=== PATIENT | male | born 1960 | race Caucasian/White ===

== ENCOUNTER 2017-07-23 19:30 | Inpatient (IN) ==
[2017-07-23] MEDS ORDERED: 0.9 % Sodium Chloride 1,000 ML IVC ONE ×3 (20:06→22:50)
[2017-07-23] MEDS ORDERED: Folic Acid 1 MG in D5% in Water 50 ML IVPB ONE (20:08)
[2017-07-23] MEDS ORDERED: Thiamine (B-1) 100 MG in D5% in Water 50 ML IVPB STA (20:08)
--- NOTE | 2017-07-23 20:17 | Emergency Department Note ---
Disposition Clinical Impression: Alcoholic intoxication, Lactic acidosis, Delirium, Suicidal ideations Disposition: Admitted As Inpatient Condition: Fair Time of Disposition: 22:14 Alcohol HPI - General Chief Complaint: ED Alcohol Abuse Stated Complaint: ETOH Time Seen by Provider: 07/23/17 19:43 Source: patient Mode of arrival: ambulatory Limitations: no limitations Nursing Notes Reviewed: Yes Vital Signs Reviewed: Yes - History of Present Illness HPI Narrative: 57-year-old male with multiple complaints, generalized weakness chronic alcoholic previously anticoagulated on Coumadin, states that he just feels unwell. Patient has been noncompliant on his medications including including Coumadin and baclofen for last 2 or 3 days, he drinks up to 20 beers daily, he is constantly drinking, his daughter who is also bedside homicide and stated that she is concerned that he is at risk for assaulting others including his however the patient denies any HI or SI. Patient states he shaky, denies any abdominal pain but does endorse some diarrhea. States he is not, and alcohol withdrawal as he consistently drinks. Denies hematemesis, hematochezi. Pt Subjective Complaint: alcohol intoxication, alcohol dependence, desires rehab Last Drink: just [employer] Alcohol Type: Beer Amount of alcohol consumed: 12/day Chronic Alcohol Use: Yes Previous Visits for Alcohol Intoxication?: No Recent Trauma: Yes Associated symptoms: Reports: nausea, vomiting, tremors. Denies: syncope, seizure, melena, suicidality, Injury to Self Treatments prior to arrival: none - Related Data Home Medications Medication Instructions Recorded Confirmed LORazepam [Ativan] 1 mg PO TID PRN 09/18/16 07/23/17 Lisinopril/Hydrochlorothiazide 1 tab PO DAILY 09/18/16 07/23/17 [Zestoretic 10-12.5 mg Tablet] Omeprazole [PriLOSEC] 40 mg PO BID 09/18/16 07/23/17 Tamsulosin [Flomax] 0.8 mg PO HS 09/18/16 07/23/17 TraZODone 50 mg PO HS 09/18/16 07/23/17 Acetaminophen with Codeine 1 tab PO Q6H PRN 07/23/17 07/23/17 [Acetaminophen-Cod #4 Tablet] Baclofen [Lioresal] 10 mg PO TID PRN 07/23/17 07/23/17 Coumadin mg PO DAILY 07/23/17 Furosemide [Lasix] 20 mg PO DAILY 07/23/17 07/23/17 Loperamide HCl [Anti-Diarrheal] 2 mg PO PER PKG DI PRN 07/23/17 07/23/17 Metoprolol Succinate 100 mg PO DAILY 07/23/17 07/23/17 Potassium Chloride [Klor-Con 8 meq PO DAILY 07/23/17 07/23/17 Sprinkle] Rosuvastatin Calcium 40 mg PO HS 07/23/17 07/23/17 Allergies Allergy/AdvReac Type Severity Reaction Status Date / Time some kind of depression Allergy Itching Uncoded 09/18/16 08:59 medication All systems ED: reviewed and negative except as stated. Review of Systems: As Per HPI Constitutional: Denies: fever, chills Eyes: Denies: eye pain ENT ED: Denies: ear pain Cardiovascular: Denies: chest pain Respiratory: Denies: cough, dyspnea Gastrointestinal: Denies: abdominal pain Past Medical History - Past Medical History Attestation: Yes The following information was validated with the patient. Source: patient Medical history: Reports: DVT, GERD, hypertension Surgical history: Reports: orthopedic, other (Left shoulder surgery), vascular surgery (Venous thrombectomy, lower extremities) Psychiatric history: Reports: anxiety - Social History Smoking Status: Current every day smoker Smokeless Tobacco Status: No Alcohol use: Reports: heavy, recent Drug use: Reports: none Physical Exam Constitutional: Vital signs show tachycardia, obese male appears agitated, older than stated age shoveled Eyes: PERRLA, sclera anicteric ENT & Mouth: MM dry Neck: normal inspection, neck is supple Resp: CTA bilaterally, no resp distress CV: Tachycardic GI: Abdomen is mildly distended, no fluid wave, mild hepatomegaly, mild tenderness to palpation diffusely Neuro: A&O1, CNII-XII grossly intact, HA[place]NE, asterixis and shakiness, gait dysmetria Skin: on limited exam, skin intact with no rashes or lesions - General Limitations: no limitations General appearance: alert, in no apparent distress Course Course Narrative: Given multiple complaints, patient with chronic alcoholism is very shaky dysmetric, has been previously anticoagulated on Coumadin noncompliant for several days also concern for baclofen and EtOH withdrawal, patient will get fluids with banana bag with thiamine folate, basic lab work with lactate CBC BMP chest x-ray head CT given confusion ammonia level benzodiazepines for withdrawal [facility] protocol plan for likely admission. - Reevaluation(s) Reevaluation #1: Patient with questionable homicidal and suicidal ideation, also has evidence of lactic acidosis, dehydration alcohol intoxication, plan for admission to hospital service and and psychiatric evaluation Time: 22:13 Vital Signs Temperature 97.7 F 07/23/17 19:34 Pulse Rate 136 07/23/17 19:34 Respiratory Rate 18 07/23/17 19:34 Blood Pressure 137/102 07/23/17 19:34 O2 Sat by Pulse Oximetry 92 07/23/17 19:34 Temperature 97.7 F 07/23/17 19:34 Pulse Rate 110 07/23/17 21:40 Respiratory Rate 18 07/23/17 23:38 Blood Pressure 148/100 07/23/17 23:38 O2 Sat by Pulse Oximetry 95 07/23/17 21:40 Oxygen Delivery Oxygen Delivery Room Air Alcohol - Differential Diagnosis Differential Diagnosis: Likely: alcohol withdrawal delirium, hypomagnesemia, acute alcohol intoxication - Medical Records Medical records reviewed: Yes I reviewed the patient's medical records. - Lab Data Lab results reviewed: Yes I reviewed the patient's lab results. Result diagrams: 07/23/17 20:47 07/23/17 20:47 Lab Results 07/23/17 07/23/17 07/23/17 Range/Units 20:47 20:47 20:47 WBC 9.2 (4.3-11.1) K/mcL RBC 4.86 (4.19-5.50) M/mcL Hgb 15.4 (12.9-16.9) g/dL Hct 44.6 (37.5-50.1) % MCV 91.8 (83.0-100.0) fL MCH 31.7 (28.0-33.3) pg MCHC 34.5 (31.6-35.5) g/dL RDW 15.3 H (11.5-14.5) % Plt Count 258 (140-400) K/mcL MPV 9.2 L (9.4-12.4) fL Immature Gran % 0.3 (0-4) % Seg Neutrophils % 69.8 % Lymphocytes % 20.6 % Monocytes % 8.6 % Eosinophils % 0.4 % Basophils % 0.3 % Neutrophils # 6.4 (1.6-8.9) K/mcL Lymphocytes # 1.9 (0.6-4.6) K/mcL Monocytes # 0.8 (0.0-1.3) K/mcL Eosinophils # 0.0 (0.0-0.6) K/mcL Basophils # 0.0 (0.0-0.2) K/mcL PT (9.4-12.1) Seconds INR APTT (26.0-36.0) Seconds Sodium 140 (136-145) mEq/L Potassium 4.0 (3.5-4.5) mEq/L Chloride 103 (98-109) mEq/L Carbon Dioxide 21 (19-29) mEq/L BUN 5 L (8-26) mg/dL Creatinine 0.67 L (0.72-1.25) mg/dL Est GFR ( Amer) > 60 (> 60) Est GFR (Non-Af Amer) > 60 (> 60) BUN/Creatinine Ratio 7 (6-26) Glucose 91 (70-99) mg/dL Calculated Osmolality 287 (280-300) Lactic Acid 3.9 H (0.5-2.2) mmol/L Calcium 9.1 (8.6-10.8) mg/dL Phosphorus (2.3-4.7) mg/dL Magnesium (1.6-2.6) mg/dL Total Bilirubin 0.7 (0.2-1.2) mg/dL AST 86 H (5-34) Units/L ALT 55 (0-55) Units/L Alkaline Phosphatase 75 (38-126) Units/L Ammonia (18-72) mcmol/L Creatine Kinase 70 (30-200) Units/L Troponin I (0-0.03) ng/mL Serum Total Protein 7.3 (6.0-8.3) g/dL Albumin 3.6 (3.5-5.0) g/dL Globulin 3.7 H (2.4-3.5) g/dL Albumin/Globulin Ratio 1.0 L (1.1-2.2) Urine Color (Yellow) Urine Clarity (Clear) Urine pH (5.0-8.0) pH Units Ur Specific [place] (1.010-1.025) Urine Protein (Neg-Trace) mg/dL Urine Glucose (UA) (Normal) mg/dL Urine Ketones (Negative) mg/dL Urine Blood (Negative) Urine Nitrite (Negative) Urine Bilirubin (Negative) Urine Urobilinogen (Normal) mg/dL Ur Leukocyte Esterase (Negative) Ur Culture Indicated? (NO) Urine Opiates Screen (Llsfwj=525) ng/mL Ur Barbiturates Screen (Aehkxe=935) ng/mL Ur Phencyclidine Scrn (Cutoff=25) ng/mL Ur Amphetamines Screen (Nscuus=0849) ng/mL U Benzodiazepines Scrn (Zgvnfd=662) ng/mL Urine Cocaine Screen (Cutoff= 300) ng/mL U Marijuana (THC) Screen (Cutoff = 50) ng/mL Ethyl Alcohol 249 H (0-10) mg/dL 07/23/17 07/23/17 07/23/17 Range/Units 20:47 20:47 20:47 WBC (4.3-11.1) K/mcL RBC (4.19-5.50) M/mcL Hgb (12.9-16.9) g/dL Hct (37.5-50.1) % MCV (83.0-100.0) fL MCH (28.0-33.3) pg MCHC (31.6-35.5) g/dL RDW (11.5-14.5) % Plt Count (140-400) K/mcL MPV (9.4-12.4) fL Immature Gran % (0-4) % Seg Neutrophils % % Lymphocytes % % Monocytes % % Eosinophils % % Basophils % % Neutrophils # (1.6-8.9) K/mcL Lymphocytes # (0.6-4.6) K/mcL Monocytes # (0.0-1.3) K/mcL Eosinophils # (0.0-0.6) K/mcL Basophils # (0.0-0.2) K/mcL PT 21.7 H (9.4-12.1) Seconds INR 2.0 APTT (26.0-36.0) Seconds Sodium (136-145) mEq/L Potassium (3.5-4.5) mEq/L Chloride (98-109) mEq/L Carbon Dioxide (19-29) mEq/L BUN (8-26) mg/dL Creatinine (0.72-1.25) mg/dL Est GFR ( Amer) (> 60) Est GFR (Non-Af Amer) (> 60) BUN/Creatinine Ratio (6-26) Glucose (70-99) mg/dL Calculated Osmolality (280-300) Lactic Acid (0.5-2.2) mmol/L Calcium (8.6-10.8) mg/dL Phosphorus (2.3-4.7) mg/dL Magnesium (1.6-2.6) mg/dL Total Bilirubin (0.2-1.2) mg/dL AST (5-34) Units/L ALT (0-55) Units/L Alkaline Phosphatase (38-126) Units/L Ammonia 22 (18-72) mcmol/L Creatine Kinase (30-200) Units/L Troponin I 0.01 (0-0.03) ng/mL Serum Total Protein (6.0-8.3) g/dL Albumin (3.5-5.0) g/dL Globulin (2.4-3.5) g/dL Albumin/Globulin Ratio (1.1-2.2) Urine Color (Yellow) Urine Clarity (Clear) Urine pH (5.0-8.0) pH Units Ur Specific [place] (1.010-1.025) Urine Protein (Neg-Trace) mg/dL Urine Glucose (UA) (Normal) mg/dL Urine Ketones (Negative) mg/dL Urine Blood (Negative) Urine Nitrite (Negative) Urine Bilirubin (Negative) Urine Urobilinogen (Normal) mg/dL Ur Leukocyte Esterase (Negative) Ur Culture Indicated? (NO) Urine Opiates Screen (Yxshfk=803) ng/mL Ur Barbiturates Screen (Ulsbqg=613) ng/mL Ur Phencyclidine Scrn (Cutoff=25) ng/mL Ur Amphetamines Screen (Pdudgt=4431) ng/mL U Benzodiazepines Scrn (Ikaeey=314) ng/mL Urine Cocaine Screen (Cutoff= 300) ng/mL U Marijuana (THC) Screen (Cutoff = 50) ng/mL Ethyl Alcohol (0-10) mg/dL 07/23/17 07/23/17 07/23/17 Range/Units 20:47 21:42 21:43 WBC (4.3-11.1) K/mcL RBC (4.19-5.50) M/mcL Hgb (12.9-16.9) g/dL Hct (37.5-50.1) % MCV (83.0-100.0) fL MCH (28.0-33.3) pg MCHC (31.6-35.5) g/dL RDW (11.5-14.5) % Plt Count (140-400) K/mcL MPV (9.4-12.4) fL Immature Gran % (0-4) % Seg Neutrophils % % Lymphocytes % % Monocytes % % Eosinophils % % Basophils % % Neutrophils # (1.6-8.9) K/mcL Lymphocytes # (0.6-4.6) K/mcL Monocytes # (0.0-1.3) K/mcL Eosinophils # (0.0-0.6) K/mcL Basophils # (0.0-0.2) K/mcL PT (9.4-12.1) Seconds INR APTT 34.0 (26.0-36.0) Seconds Sodium (136-145) mEq/L Potassium (3.5-4.5) mEq/L Chloride (98-109) mEq/L Carbon Dioxide (19-29) mEq/L BUN (8-26) mg/dL Creatinine (0.72-1.25) mg/dL Est GFR ( Amer) (> 60) Est GFR (Non-Af Amer) (> 60) BUN/Creatinine Ratio (6-26) Glucose (70-99) mg/dL Calculated Osmolality (280-300) Lactic Acid (0.5-2.2) mmol/L Calcium (8.6-10.8) mg/dL Phosphorus (2.3-4.7) mg/dL Magnesium (1.6-2.6) mg/dL Total Bilirubin (0.2-1.2) mg/dL AST (5-34) Units/L ALT (0-55) Units/L Alkaline Phosphatase (38-126) Units/L Ammonia (18-72) mcmol/L Creatine Kinase (30-200) Units/L Troponin I (0-0.03) ng/mL Serum Total Protein (6.0-8.3) g/dL Albumin (3.5-5.0) g/dL Globulin (2.4-3.5) g/dL Albumin/Globulin Ratio (1.1-2.2) Urine Color Yellow (Yellow) Urine Clarity Clear (Clear) Urine pH 6.0 (5.0-8.0) pH Units Ur Specific [place] < 1.005 L (1.010-1.025) Urine Protein Negative (Neg-Trace) mg/dL Urine Glucose (UA) Normal (Normal) mg/dL Urine Ketones Negative (Negative) mg/dL Urine Blood Negative (Negative) Urine Nitrite Negative (Negative) Urine Bilirubin Negative (Negative) Urine Urobilinogen Normal (Normal) mg/dL Ur Leukocyte Esterase Negative (Negative) Ur Culture Indicated? NO (NO) Urine Opiates Screen Negative (Ikoaxe=341) ng/mL Ur Barbiturates Screen Negative (Jsrhvg=103) ng/mL Ur Phencyclidine Scrn Negative (Cutoff=25) ng/mL Ur Amphetamines Screen Negative (Kpumfv=5402) ng/mL U Benzodiazepines Scrn Negative (Gmbigx=637) ng/mL Urine Cocaine Screen Negative (Cutoff= 300) ng/mL U Marijuana (THC) Screen Negative (Cutoff = 50) ng/mL Ethyl Alcohol (0-10) mg/dL 07/23/17 Range/Units 22:30 WBC (4.3-11.1) K/mcL RBC (4.19-5.50) M/mcL Hgb (12.9-16.9) g/dL Hct (37.5-50.1) % MCV (83.0-100.0) fL MCH (28.0-33.3) pg MCHC (31.6-35.5) g/dL RDW (11.5-14.5) % Plt Count (140-400) K/mcL MPV (9.4-12.4) fL Immature Gran % (0-4) % Seg Neutrophils % % Lymphocytes % % Monocytes % % Eosinophils % % Basophils % % Neutrophils # (1.6-8.9) K/mcL Lymphocytes # (0.6-4.6) K/mcL Monocytes # (0.0-1.3) K/mcL Eosinophils # (0.0-0.6) K/mcL Basophils # (0.0-0.2) K/mcL PT (9.4-12.1) Seconds INR APTT (26.0-36.0) Seconds Sodium (136-145) mEq/L Potassium (3.5-4.5) mEq/L Chloride (98-109) mEq/L Carbon Dioxide (19-29) mEq/L BUN (8-26) mg/dL Creatinine (0.72-1.25) mg/dL Est GFR ( Amer) (> 60) Est GFR (Non-Af Amer) (> 60) BUN/Creatinine Ratio (6-26) Glucose (70-99) mg/dL Calculated Osmolality (280-300) Lactic Acid (0.5-2.2) mmol/L Calcium (8.6-10.8) mg/dL Phosphorus 3.3 (2.3-4.7) mg/dL Magnesium 1.8 (1.6-2.6) mg/dL Total Bilirubin (0.2-1.2) mg/dL AST (5-34) Units/L ALT (0-55) Units/L Alkaline Phosphatase (38-126) Units/L Ammonia (18-72) mcmol/L Creatine Kinase (30-200) Units/L Troponin I (0-0.03) ng/mL Serum Total Protein (6.0-8.3) g/dL Albumin (3.5-5.0) g/dL Globulin (2.4-3.5) g/dL Albumin/Globulin Ratio (1.1-2.2) Urine Color (Yellow) Urine Clarity (Clear) Urine pH (5.0-8.0) pH Units Ur Specific [place] (1.010-1.025) Urine Protein (Neg-Trace) mg/dL Urine Glucose (UA) (Normal) mg/dL Urine Ketones (Negative) mg/dL Urine Blood (Negative) Urine Nitrite (Negative) Urine Bilirubin (Negative) Urine Urobilinogen (Normal) mg/dL Ur Leukocyte Esterase (Negative) Ur Culture Indicated? (NO) Urine Opiates Screen (Hndnhi=392) ng/mL Ur Barbiturates Screen (Khdybq=700) ng/mL Ur Phencyclidine Scrn (Cutoff=25) ng/mL Ur Amphetamines Screen (Wqrfwl=9460) ng/mL U Benzodiazepines Scrn (Ydafsc=949) ng/mL Urine Cocaine Screen (Cutoff= 300) ng/mL U Marijuana (THC) Screen (Cutoff = 50) ng/mL Ethyl Alcohol (0-10) mg/dL - Radiology Data Radiology results reviewed: Yes I reviewed the patient's radiology results. Chest X-Ray 07/23/17 19:51 IMPRESSION: No acute process. D/ / Beltran Trammell MD / Beltran Trammell MD Interpreting Provider: Beltran Trammell MD Abdomen/Pelvis CT 07/23/17 20:08 IMPRESSION: No acute abdominopelvic abnormality. D/ / Fitz Lafleur MD / Fitz Lafleur MD Interpreting Provider: Fitz Lafleur MD Head CT 07/23/17 20:08 IMPRESSION: No acute intracranial abnormality. D/ / Fitz Lafleur MD / Fitz Lafleur MD Interpreting Provider: Fitz Lafleur MD - EKG Data EKG attestation: Yes I reviewed and interpreted this EKG. EKG shows normal: sinus rhythm Rate: tachycardia (124 bpm TN 135 QRS 11 QTc [address] segment elevations or depressions, sinus tachycardia) Attestation Statement - Attestation Attestation: I, Patricio Shepard, examined this patient and my medical decision-making was reviewed with the ENROBER/PA/Advanced Practice Nurse/Resident Physician. I agree with the documented findings, disposition and treatment plan as described except to the extent set forth below. 57-year-old male presents emergency Department secondary to confusion. Patient states that he was feeling suicidal and stopped his medications 3 days ago which included Coumadin and baclofen and Ativan. Patient has a history of significant EtOH use, drinking daily. Patient states he has got decreased the amount of his usual EtOH intake today. and family state that the patient is confused and has been acting strangely over the past 2-[address] of the head was negative for acute intracranial hemorrhage or fracture. Patient has a lactic acidosis. He will be admitted to the hospital for further care and evaluation of possible baclofen withdrawal, suicidal ideation, lactic acidosis and further evaluation.
[2017-07-23] MEDS ORDERED: Thiamine (B-1) 100 MG, Folic Acid 1 MG, MVI, adult with vitamin K 10 ML in 0.9 % Sodi... IVPB SCH (20:40)
[2017-07-23 20:59] LABS: Basophils % 0.3 %; Eosinophils % 0.4 %; Hematocrit 44.6 % (37.5-50.1); Hemoglobin 15.4 g/dL (12.9-16.9); Immature Granulocytes % 0.3 % (0-4); Lymphocytes # 1.9 K/mcL (0.6-4.6); Lymphocytes % 20.6 %; Mean Corpuscular HGB Conc 34.5 g/dL (31.6-35.5); Mean Corpuscular Hemoglobin 31.7 pg (28.0-33.3); Mean Corpuscular Volume 91.8 fL (83.0-100.0); Mean Platelet Volume 9.2 fL (9.4-12.4); Monocytes # 0.8 K/mcL (0.0-1.3); Monocytes % 8.6 %; Neutrophils # 6.4 K/mcL (1.6-8.9); Platelet Count 258 K/mcL (140-400); Red Blood Count 4.86 M/mcL (4.19-5.50); Red Cell Distribution Width 15.3 % (11.5-14.5); Segmented Neutrophils % 69.8 %
[2017-07-23] MEDS ORDERED: *HR* LORazepam 2 MG/ML VIAL IVP ONE (21:05)
[2017-07-23 21:07] LABS: Prothrombin Time 21.7 Seconds (9.4-12.1)
[2017-07-23 21:13] LABS: Alanine Aminotransferase 55 Units/L (0-55); Albumin 3.6 g/dL (3.5-5.0); Alkaline Phosphatase 75 Units/L (38-126); Aspartate Amino Transferase 86 Units/L (5-34); BUN/Creatinine Ratio 7 (6-26); Bilirubin,Total 0.7 mg/dL (0.2-1.2); Calcium 9.1 mg/dL (8.6-10.8); Carbon Dioxide 21 mEq/L (19-29); Chloride 103 mEq/L (98-109); Creatine Kinase 70 Units/L (30-200); Ethanol 249 mg/dL (0-10); Globulin 3.7 g/dL (2.4-3.5); Glucose 91 mg/dL (70-99); Osmolality,Calculated 287 (280-300); Sodium 140 mEq/L (136-145); Total Protein 7.3 g/dL (6.0-8.3); eGFR For African Americans > 60 (> 60); eGFR For Non-African Americans > 60 (> 60)
[2017-07-23 21:14] LABS: Blood Urea Nitrogen 5 mg/dL (8-26)
[2017-07-23] MEDS: Nicotine 14 MG PATCH.TD24 TD SCH (21:44)
[2017-07-23 21:58] LABS: Bilirubin,Urine Negative (Negative); Blood,Urine Negative (Negative); Clarity,Urine Clear (Clear); Color,Urine Yellow (Yellow); Glucose,Urine (UA) Normal (Normal); Ketones,Urine Negative (Negative); Leukocyte Esterase,Urine Negative (Negative); Nitrite,Urine Negative (Negative); Protein,Urine Negative (Neg-Trace); Specific Gravity,Urine < 1.005 (1.010-1.025); Urobilinogen,Urine Normal (Normal)
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
[2017-07-23] MEDS ORDERED: Ketorolac 15 MG/ML VIAL IVP ONE (22:24)
[2017-07-23] MEDS ORDERED: *HR* LORazepam 2 MG/ML VIAL IVP PRN ×2 (22:45)
[2017-07-23 22:46] LABS: Amphetamine Screen,Urine Negative ng/mL (Cutoff=1000); Barbiturate Screen,Urine Negative ng/mL (Cutoff=200); Benzodiazepines Screen,Urine Negative ng/mL (Cutoff=200); Cannabinoid Screen,Urine Negative ng/mL (Cutoff = 50); Cocaine Screen,Urine Negative ng/mL (Cutoff= 300); Opiate Screen,Urine Negative ng/mL (Cutoff=300); Phencyclidine Screen,Urine Negative ng/mL (Cutoff=25)
[2017-07-23] MEDS ORDERED: *HR* Morphine 2 MG/ML SYRINGE IVP PRN (22:48)
[2017-07-23] MEDS ORDERED: Naloxone 0.4 MG/ML INJ IVP PRN (22:48)
[2017-07-23 23:04] LABS: Acetaminophen < 1.0 mcg/mL (10-30); Salicylate < 5.0 mg/dL (15-30)
[2017-07-23 23:43] LABS: Magnesium 1.8 mg/dL (1.6-2.6); Phosphorous 3.3 mg/dL (2.3-4.7)
[2017-07-24] MEDS ORDERED: ACETAMINOPHEN COD PO PRN (00:37)
[2017-07-24 01:04] LABS: INR 2.1
[2017-07-24 01:06] LABS: Activated Partial Thrombo Time 34.3 Seconds (26.0-36.0)
[2017-07-24] MEDS: Pantoprazole 40 MG VIAL IVP SCH ×2 (01:08→05:02)
[2017-07-24] MEDS: Beer can PO SCH ×4 (02:33→17:36)
[2017-07-24] MEDS: 0.9 % Sodium Chloride 1,000 ML IVC SCH ×3 (03:02→22:02)
[2017-07-24] MEDS: Ipratropium/Albuterol Neb 3 ML IH SCH ×5 (04:12→21:12)
[2017-07-24 04:39] LABS: Hematocrit 40.4 % (37.5-50.1); Mean Corpuscular HGB Conc 33.9 g/dL (31.6-35.5); Mean Corpuscular Hemoglobin 31.6 pg (28.0-33.3); Mean Corpuscular Volume 93.1 fL (83.0-100.0); Mean Platelet Volume 9.3 fL (9.4-12.4); Platelet Count 223 K/mcL (140-400); Red Blood Count 4.34 M/mcL (4.19-5.50); Red Cell Distribution Width 15.4 % (11.5-14.5)
[2017-07-24 04:40] LABS: Hemoglobin 13.7 g/dL (12.9-16.9)
[2017-07-24 04:59] LABS: Alanine Aminotransferase 45 Units/L (0-55); Albumin 3.1 g/dL (3.5-5.0); Alkaline Phosphatase 64 Units/L (38-126); Aspartate Amino Transferase 68 Units/L (5-34); BUN/Creatinine Ratio 8 (6-26); Bilirubin,Total 0.8 mg/dL (0.2-1.2); Blood Urea Nitrogen 5 mg/dL (8-26); Calcium 8.1 mg/dL (8.6-10.8); Carbon Dioxide 21 mEq/L (19-29); Chloride 106 mEq/L (98-109); Ethanol 115 mg/dL (0-10); Globulin 3.2 g/dL (2.4-3.5); Glucose 85 mg/dL (70-99); Osmolality,Calculated 283 (280-300); Sodium 138 mEq/L (136-145); Total Protein 6.3 g/dL (6.0-8.3); eGFR For African Americans > 60 (> 60); eGFR For Non-African Americans > 60 (> 60)
[2017-07-24] MEDS: Ondansetron 4 MG/2 ML VIAL IVP PRN (05:01)
[2017-07-24] MEDS: *HR* Heparin 5,000 UNIT/ML VIAL SQ SCH ×2 (05:01→17:28)
[2017-07-24] MEDS: *HR* LORazepam 2 MG/ML VIAL IVP PRN ×2 (05:02→09:33)
[2017-07-24 09:23] LABS: Thyroid Stimulating Hormone 1.441 mcIU/mL (0.350-4.840)
[2017-07-24] MEDS: Metoprolol XL (24 HR) Succ 50 MG TAB.ER.24H PO SCH (09:34)
[2017-07-24] MEDS: Vitamin B Complex/Vit C/Vit E 1 EACH TABLET PO SCH (09:34)
[2017-07-24] MEDS: Folic Acid 1 MG TABLET PO SCH (09:34)
[2017-07-24] MEDS: Thiamine (B-1) 100 MG TABLET PO SCH (09:34)
[2017-07-24] MEDS: Furosemide 20 MG TABLET PO SCH (09:34)
[2017-07-24] MEDS: Nicotine 14 MG PATCH.TD24 TD SCH (09:35)
[2017-07-24] MEDS ORDERED: Mag Hydrox/Al Hydrox/Simeth 30 ML UDC PO PRN (13:42)
--- NOTE | 2017-07-24 19:08 | Electrocardiograph Report ---
[place] [id number] Test Date: 2017-07-23 Pat Name: Scout Thakkar Department: 102 Room: 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
--- NOTE | 2017-07-24 19:28 | Event Note ---
Date of Encounter: 07/24/17 Time of Encounter: 10:30 I examined this patient and my medical decision-making was reviewed with the Resident Physician on 07/24/17. I agree with the documented findings, disposition and treatment plan as described except to the extent set forth below. Mr Thakkar is currently admitted for acute alcohol withdrawal and depression. He remains moderate to high risk due to potential for worsening clinical status. Mr Thakkar is sleeping off and on. No fever or chills. No SOB. Awaiting SW and psych. Exam Alert. Comfortable Heart not tachy No wheeze Abd soft I/P 1. ETOH withdrawal 2. Depression Further diagnoses and plan as per progress note of today.
--- NOTE | 2017-07-24 23:20 | Internal Med Progress Note ---
<Kimmy Stoddard - Last Filed: 07/24/17 23:55> Date of Encounter: 07/24/17 Time of Encounter: 09:00 - Assessment and plan (1) Alcoholic intoxication Current Visit: Yes Status: Acute Assessment and plan: - Pt states that he drink 20 "tall boy" beers per day - Reported last drink of day of ED presentation. - Denies DT history, no reported seizures or withdrawls - Tremors on exam - CIWA protocol - Received 2mg Ativan this morning. Banana bag in ED - ammonia level 22. - Continue librium. Prescribed beer with meals. - Continue to monitor for signs of withdrawl. Qualifiers: Complication of substance-induced condition: with delirium Qualified Code(s ): F10.921 - Alcohol use, unspecified with intoxication delirium (2) Suicidal ideations Current Visit: Yes Status: Acute Assessment and plan: -awaiting psych consult to see their recommendations (3) Acute encephalopathy Current Visit: Yes Status: Acute Assessment and plan: - Possible etiologies include alcohol intoxication - Did not appear confused or altered during interview this AM - Negative head CT - Continue to monitor and treat underlying cause as above. (4) DVT prophylaxis Current Visit: Yes Status: Acute Assessment and plan: -Pt has IVC filter in place and his coumadin restarted -INR is therapeutic at 2.1 - Time Spent With Patient 25 - 35 minutes - Subjective Interval history: Pt seen and examined this morning. Pt sitting on bedside chair, pt's daughter, and a sitter are in the room as well. When asked what brought him to the ED he replied that it was because he was just "an old drunk." He visitstates that he doesn't want to hurt himself or anybody else, despite reported suicidal (and potentially homicidal) behavior. Pt states he has never had to be hospitalized for EtOH intoxication in the past and he denies ever having experienced symptoms of EtOH withdrawal in the past or on today's examination. Pt states he has been wanting to quit drinking and enter into rehab for the last two weeks. - Constitutional Vitals: Temp Pulse Resp BP Pulse Ox 98.3 F 78 17 120/84 97 07/24/17 19:06 07/24/17 19:06 07/24/17 19:06 07/24/17 19:06 07/24/17 19:06 General appearance: Present: mild distress (anxious, jittery, nervous), A&O X 3 Exam: Gen.: Vitals noted. No acute distress. AAOx3 HEENT: EOMI, Normocephalic, atraumatic Neck: Supple. Good ROM. Cardiac: regular rate, no murmur, +S1/S2 Pulmonary: Non-labored resirations, no wheezes, equal chest expansion Abdomen: no rebound pain, no guarding MSK: moving all extremities, no visible deformities Extremities: no BLE edema, nontender calf, no cyanosis or clubbing Neuro: no speech deficits, moves all extremities, no focal deficits Psych: depressed affect, cooperative, good eye contact Internal Medicine: Result - Labs CBC & Chem 7: 07/24/17 04:19 07/24/17 04:19 Labs: Short CBC 07/24/17 Range/Units 04:19 WBC 7.0 (4.3-11.1) K/mcL Hgb 13.7 D (12.9-16.9) g/dL Hct 40.4 (37.5-50.1) % Plt Count 223 (140-400) K/mcL BMP 07/24/17 04:19 Sodium 138 Potassium 4.0 Chloride 106 Carbon Dioxide 21 BUN 5 L Creatinine 0.66 L Glucose 85 Calcium 8.1 L Liver Function 07/24/17 Range/Units 04:19 Total Bilirubin 0.8 (0.2-1.2) mg/dL AST 68 H (5-34) Units/L ALT 45 (0-55) Units/L Alkaline Phosphatase 64 (38-126) Units/L Albumin 3.1 L (3.5-5.0) g/dL - ABG Interpretation ABG results: PT/INR, D-dimer PT 23.0 Seconds (9.4-12.1) H 07/24/17 00:46 Consult Discharge Plan - Plan Referrals: Michael Lopez, [employer] [Primary Care Provider] - <Mahin Hernandez - Last Filed: 07/25/17 14:33> Date of Encounter: 07/24/17 - Assessment and plan (1) Alcohol dependence Current Visit: Yes Status: Acute Qualifiers: Substance use status: in withdrawal Complication of substance-induced condition: uncomplicated Qualified Code(s): F10.230 - Alcohol dependence with withdrawal, uncomplicated (2) Major depress dis, severe Current Visit: Yes Status: Acute (3) Suicidal ideations Current Visit: Yes Status: Resolved (4) Tobacco abuse Current Visit: Yes Status: Chronic (5) HTN (hypertension) Current Visit: Yes Status: Chronic Qualifiers: Hypertension type: essential hypertension Qualified Code(s): I10 - Essential (primary) hypertension (6) History of DVT (deep vein thrombosis) Current Visit: Yes Status: Chronic - Constitutional Vitals: Temp Pulse Resp BP Pulse Ox 98.1 F 84 22 119/84 96 07/25/17 11:51 07/25/17 11:51 07/25/17 11:51 07/25/17 11:51 07/25/17 11:51 Internal Medicine: Result - Labs CBC & Chem 7: 07/25/17 05:17 07/25/17 05:17 Labs: Short CBC 07/25/17 Range/Units 05:17 WBC 6.3 (4.3-11.1) K/mcL Hgb 13.4 (12.9-16.9) g/dL Hct 40.1 (37.5-50.1) % Plt Count 192 (140-400) K/mcL BMP 07/25/17 05:17 Sodium 138 Potassium 3.6 Chloride 103 Carbon Dioxide 28 BUN 7 L Creatinine 0.72 Glucose 96 Calcium 8.3 L - ABG Interpretation ABG results: PT/INR, D-dimer PT 23.0 Seconds (9.4-12.1) H 07/24/17 00:46 - Attending Attestation I examined this patient and my medical decision-making was reviewed with the Resident Physician on 07/24/17. I agree with the documented findings, disposition and treatment plan as described except to the extent set forth below. Please see event note of this date.
[2017-07-25] MEDS ORDERED: *HR* LORazepam 1 MG TABLET PO ONE (03:15)
[2017-07-25] MEDS: Ipratropium/Albuterol Neb 3 ML IH SCH ×4 (04:19→22:43)
[2017-07-25] MEDS: Pantoprazole 40 MG VIAL IVP SCH (05:26)
[2017-07-25] MEDS: *HR* Heparin 5,000 UNIT/ML VIAL SQ SCH ×2 (05:26→17:17)
[2017-07-25 05:30] LABS: Hematocrit 40.1 % (37.5-50.1); Hemoglobin 13.4 g/dL (12.9-16.9); Mean Corpuscular HGB Conc 33.4 g/dL (31.6-35.5); Mean Corpuscular Hemoglobin 31.8 pg (28.0-33.3); Mean Platelet Volume 9.5 fL (9.4-12.4); Platelet Count 192 K/mcL (140-400); Red Blood Count 4.22 M/mcL (4.19-5.50); Red Cell Distribution Width 15.5 % (11.5-14.5)
[2017-07-25 05:44] LABS: BUN/Creatinine Ratio 10 (6-26); Blood Urea Nitrogen 7 mg/dL (8-26); Calcium 8.3 mg/dL (8.6-10.8); Carbon Dioxide 28 mEq/L (19-29); Chloride 103 mEq/L (98-109); Glucose 96 mg/dL (70-99); Osmolality,Calculated 284 (280-300); Potassium 3.6 mEq/L (3.5-4.5); Sodium 138 mEq/L (136-145); eGFR For African Americans > 60 (> 60); eGFR For Non-African Americans > 60 (> 60)
[2017-07-25] MEDS: Beer can PO SCH ×3 (08:47→18:24)
[2017-07-25] MEDS: Vitamin B Complex/Vit C/Vit E 1 EACH TABLET PO SCH (08:49)
[2017-07-25] MEDS: Thiamine (B-1) 100 MG TABLET PO SCH (08:49)
[2017-07-25] MEDS: Furosemide 20 MG TABLET PO SCH (08:49)
[2017-07-25] MEDS: Nicotine 14 MG PATCH.TD24 TD SCH (08:49)
[2017-07-25] MEDS: Metoprolol XL (24 HR) Succ 50 MG TAB.ER.24H PO SCH (08:49)
[2017-07-25] MEDS: Folic Acid 1 MG TABLET PO SCH (08:49)
--- NOTE | 2017-07-25 11:36 | Consult Note ---
Date of Encounter: 07/25/17 Time of Encounter: 10:30 Assessment & Recommendation (1) Major depress dis, severe Current visit: Yes Status: Acute Assessment & Recommendation: Patient need inpatient hospitalization for stabilization. start lexapro 10 mg po am (2) Suicidal ideations Current visit: Yes Status: Acute Assessment & Recommendation: IN patient hospitalization for safety and stabilization. (3) Alcohol dependence Current visit: Yes Status: Acute Qualifiers: Substance use status: in withdrawal Qualified Code(s): F10.230 - Alcohol dependence with withdrawal, uncomplicated History of Present Illness Requesting Physician: Mahin Hernandez DO Reason for consult: suicidal ideation, depression and alcohol dependence. History of present illness: Mr. Thakkar is a 57 year old male consulted today for suicidal ideation, alcohol dependence and depression. Patient at present sitting in chair, dysphoric and during session was crying mostly , I got sick and tired of being drunk , so is my family. I have lot of anxiety , i did not wanted to wake up. patient states he was sober for 20 years relapsed 1 year ago and started drinking which escalated to 20 tall beer daily, had stopped going out , lack of motivation , sleep issues, crying and no desire to do things he used to do. he wanted to go to rehab like before but has been unable to do so. He at present is anxious, depressed and hopeless , worthless and guilt, but denies suicidal ideation but does not feel safe. He states he has chronic pain and takes pain medication for back and shoulder. A/P Major depressive disorder Generalized anxiety disorder ALcohol dependence. Patient will need inpatient psychiatric services as unable to contract for safety and needs depression ,anxiety and alcohol to be addressed and treated. once medically stable can admit to 1A. Thank you for consult. CC: Mahin Hernandez DO Past Med Surg Social Fam HX - Past Medical History Medical history: DVT, GERD, hypertension - Past Psychiatric History Psychiatric history: Reports: anxiety Family psychiatric history: Unknown Family History of Suicide: Unknown - Past Surgical History Surgical History: orthopedic, other (Left shoulder surgery), vascular surgery ( IVC filter, Venous thrombectomy lower extremities) - Social History Smoking Status: Current every day smoker Smokeless Tobacco Status: No Alcohol use: heavy, recent Drug use: none - Family History Mother Hx Family Endocrine Disorder: Yes (DM) Medications & Allergies LORazepam [Ativan] 1 mg PO TID PRN 09/18/16 [History] Lisinopril/Hydrochlorothiazide [Zestoretic 10-12.5 mg Tablet] 1 tab PO DAILY 11/03 [History] Omeprazole [PriLOSEC] 40 mg PO BID 09/18/16 [History] Tamsulosin [Flomax] 0.8 mg PO HS 09/18/16 [History] TraZODone 50 mg PO HS 09/18/16 [History] Acetaminophen with Codeine [Acetaminophen-Cod #4 Tablet] 1 tab PO Q6H PRN [History] Baclofen [Lioresal] 10 mg PO TID PRN 07/23/17 [History] Coumadin 2 mg PO DAILY 07/23/17 [History] Furosemide [Lasix] 20 mg PO DAILY 07/23/17 [History] Loperamide HCl [Anti-Diarrheal] 2 mg PO PER PKG DI PRN 07/23/17 [History] Metoprolol Succinate 100 mg PO DAILY 07/23/17 [History] Potassium Chloride [Klor-Con Sprinkle] 8 meq PO DAILY 07/23/17 [History] Rosuvastatin Calcium 40 mg PO HS 07/23/17 [History] 3 Allergy/AdvReac Type Severity Reaction Status Date / Time some kind of depression Allergy Itching Uncoded 09/18/16 08:59 medication Review of Systems Psychiatric: Reports: depression, anxiety, suicidal ideation, anhedonia, difficulty concentrating, hopelessness Mental Status Exam Patient orientation: Yes Person, Yes Time, Yes Place Level of alertness: Alert Patient appearance: Unkempt Behavior: cooperative, anxious, tearful Psychomotor activity: Normal Eye contact: Maintains Eye Contact Mood description: Depressed, Anxious Affect description: tearful, dysphoric, anxious Speech pattern: Slowed Speech volume: Soft/Quiet Thought process: Intact Thought content: Yes Suicidal ideation, Yes Guilt Attention span: Unable to Sustain Attention Patient reliability: Reliable Historian Intelligence estimate: Average Judgment: Limited Insight: Partial Results - Vital Signs Vital signs: Temp Pulse Resp BP Pulse Ox 97.6 F 89 18 138/88 96 07/25/17 07:23 07/25/17 07:23 07/25/17 07:23 07/25/17 07:23 07/25/17 07:23 - Labs Labs: Laboratory Last Values WBC 6.3 K/mcL (4.3-11.1) 07/25/17 05:17 RBC 4.22 M/mcL (4.19-5.50) 07/25/17 05:17 Hgb 13.4 g/dL (12.9-16.9) 07/25/17 05:17 Hct 40.1 % (37.5-50.1) 07/25/17 05:17 MCV 95.0 fL (83.0-100.0) 07/25/17 05:17 MCH 31.8 pg (28.0-33.3) 07/25/17 05: MCHC 33.4 g/dL (31.6-35.5) 07/25/17 05: RDW 15.5 % (11.5-14.5) H 07/25/17 05:17 Plt Count 192 K/mcL (140-400) 07/25/17 05:17 MPV 9.5 fL (9.4-12.4) 07/25/17 05:17 Immature Gran % 0.3 % (0-4) 07/23/17 20:47 Seg Neutrophils % 69.8 % 07/23/17 20:47 Lymphocytes % 20.6 % 07/23/17 20:47 Monocytes % 8.6 % 07/23/17 20:47 Eosinophils % 0.4 % 07/23/17 20:47 Basophils % 0.3 % 07/23/17 20:47 Neutrophils # 6.4 K/mcL (1.6-8.9) 07/23/17 20:47 Lymphocytes # 1.9 K/mcL (0.6-4.6) 07/23/17 20:47 Monocytes # 0.8 K/mcL (0.0-1.3) 07/23/17 20:47 Eosinophils # 0.0 K/mcL (0.0-0.6) 07/23/17 20:47 Basophils # 0.0 K/mcL (0.0-0.2) 07/23/17 20:47 PT 23.0 Seconds (9.4-12.1) H 07/24/17 00:46 INR 2.1 07/24/17 00:46 APTT 34.3 Seconds (26.0-36.0) 07/24/17 00:46 Sodium 138 mEq/L (136-145) 07/25/17 05:17 Potassium 3.6 mEq/L (3.5-4.5) 07/25/17 05:17 Chloride 103 mEq/L (98-109) 07/25/17 05:17 Carbon Dioxide 28 mEq/L (19-29) 07/25/17 05:17 BUN 7 mg/dL (8-26) L 07/25/17 05:17 Creatinine 0.72 mg/dL (0.72-1.25) 07/25/17 05:17 Est GFR ( Amer) > 60 (> 60) 07/25/17 05:17 Est GFR (Non-Af Amer) > 60 (> 60) 07/25/17 05:17 BUN/Creatinine Ratio 10 (6-26) 07/25/17 05:17 Glucose 96 mg/dL (70-99) 07/25/17 05:17 POC Glucose 199 (58-89) H 07/24/17 11:08 Calculated Osmolality 284 (280-300) 07/25/17 05:17 Lactic Acid 2.8 mmol/L (0.5-2.2) H 07/24/17 00:46 Calcium 8.3 mg/dL (8.6-10.8) L 07/25/17 05:17 Phosphorus 3.3 mg/dL (2.3-4.7) 07/23/17 22:30 Magnesium 1.8 mg/dL (1.6-2.6) 07/23/17 22:30 Total Bilirubin 0.8 mg/dL (0.2-1.2) 07/24/17 04:19 AST 68 Units/L (5-34) H 07/24/17 04:19 ALT 45 Units/L (0-55) 07/24/17 04:19 Alkaline Phosphatase 64 Units/L (38-126) 07/24/17 04:19 Ammonia 22 mcmol/L (18-72) 07/23/17 20:47 Creatine Kinase 70 Units/L (30-200) 07/23/17 20:47 Troponin I 0.01 ng/mL (0-0.03) 07/23/17 20:47 B-Natriuretic Peptide < 10 pg/mL (0-100) 07/23/17 20:47 Serum Total Protein 6.3 g/dL (6.0-8.3) 07/24/17 04:19 Albumin 3.1 g/dL (3.5-5.0) L 07/24/17 04:19 Globulin 3.2 g/dL (2.4-3.5) 07/24/17 04:19 Albumin/Globulin Ratio 1.0 (1.1-2.2) L 07/24/17 04:19 TSH 1.441 mcIU/mL (0.350-4.840) 07/24/17 04:19 Urine Color Yellow (Yellow) 07/23/17 21:42 Urine Clarity Clear (Clear) 07/23/17 21:42 Urine pH 6.0 pH Units (5.0-8.0) 07/23/17 21:42 Ur Specific [place] < 1.005 (1.010-1.025) L 07/23/17 21:42 Urine Protein Negative mg/dL (Neg-Trace) 07/23/17 21:42 Urine Glucose (UA) Normal mg/dL (Normal) 07/23/17 21:42 Urine Ketones Negative mg/dL (Negative) 07/23/17 21:42 Urine Blood Negative (Negative) 07/23/17 21:42 Urine Nitrite Negative (Negative) 07/23/17 21:42 Urine Bilirubin Negative (Negative) 07/23/17 21:42 Urine Urobilinogen Normal mg/dL (Normal) 07/23/17 21:42 Ur Leukocyte Esterase Negative (Negative) 07/23/17 21:42 Ur Culture Indicated? NO (NO) 07/23/17 21:42 Salicylates < 5.0 mg/dL (15-30) L 07/23/17 22:39 Urine Opiates Screen Negative ng/mL (Mijpyv=260) 07/23/17 21:43 Acetaminophen < 1.0 mcg/mL (10-30) L 07/23/17 22:39 Ur Barbiturates Screen Negative ng/mL (Bqneaw=946) 07/23/17 21:43 Ur Phencyclidine Scrn Negative ng/mL (Cutoff=25) 07/23/17 21:43 Ur Amphetamines Screen Negative ng/mL (Wdgoho=5385) 07/23/17 21:43 U Benzodiazepines Scrn Negative ng/mL (Ipztnd=446) 07/23/17 21:43 Urine Cocaine Screen Negative ng/mL (Cutoff= 300) 07/23/17 21:43 U Marijuana (THC) Screen Negative ng/mL (Cutoff = 50) 07/23/17 21:43 Ethyl Alcohol 115 mg/dL (0-10) H 07/24/17 04:19 Consult Discharge Plan - Plan Referrals: Michael Lopez, [employer] [Primary Care Provider] -
--- NOTE | 2017-07-25 14:05 | Discharge Summary ---
Date of Encounter: 07/25/17 Time of Encounter: 08:30 - Discharge Diagnosis (1) Alcohol dependence Priority: Primary Status: Acute Qualifiers: Substance use status: in withdrawal Complication of substance-induced condition: uncomplicated Qualified Code(s): F10.230 - Alcohol dependence with withdrawal, uncomplicated (2) Major depress dis, severe Priority: Secondary Status: Acute (3) Suicidal ideations Priority: Secondary Status: Resolved (4) Tobacco abuse Priority: Secondary Status: Chronic (5) HTN (hypertension) Priority: Secondary Status: Chronic Qualifiers: Hypertension type: essential hypertension Qualified Code(s): I10 - Essential (primary) hypertension (6) History of DVT (deep vein thrombosis) Priority: Secondary Status: Chronic - Discharge Medications Home Medications: Lisinopril/Hydrochlorothiazide [Zestoretic 10-12.5 mg Tablet] 1 tab PO DAILY 11/03 [History] Omeprazole [PriLOSEC] 40 mg PO BID 09/18/16 [History] Tamsulosin [Flomax] 0.8 mg PO HS 09/18/16 [History] TraZODone 50 mg PO HS 09/18/16 [History] Acetaminophen with Codeine [Acetaminophen-Cod #4 Tablet] 1 tab PO Q6H PRN [History] Baclofen [Lioresal] 10 mg PO TID PRN 07/23/17 [History] Coumadin 2 mg PO DAILY 07/23/17 [History] Furosemide [Lasix] 20 mg PO DAILY 07/23/17 [History] Loperamide HCl [Anti-Diarrheal] 2 mg PO PER PKG DI PRN 07/23/17 [History] Metoprolol Succinate 100 mg PO DAILY 07/23/17 [History] Potassium Chloride [Klor-Con Sprinkle] 8 meq PO DAILY 07/23/17 [History] Rosuvastatin Calcium 40 mg PO HS 07/23/17 [History] Beer 360 ml PO TIDWM each 07/25/17 [Rx] Chlordiazepoxide [Librium] 50 mg PO TID capsule 07/25/17 [Rx] Folic Acid 1 mg PO DAILY tablet 07/25/17 [Rx] GuaiFENesin ER [Mucinex] 1,200 mg PO BID tbbp.12hr 07/25/17 [Rx] Ipratropium/Albuterol Neb [Duoneb] 3 ml IH QIDR inhsol 07/25/17 [Rx] Mag Hydrox/Al Hydrox/Simeth [Maalox] 30 ml PO Q4H PRN udc 07/25/17 [Rx] Nicotine Patch [Nicoderm] 14 mg TD DAILY patch.td24 07/25/17 [Rx] Thiamine (B-1) [Vitamin B-1] 100 mg PO DAILY tablet 07/25/17 [Rx] Vitamin B Complex/Vit C/Vit E [Stresstab] 1 each PO DAILY tablet 07/25/17 [Rx] Allergies/Adverse Reactions: 3 Allergy/AdvReac Type Severity Reaction Status Date / Time some kind of depression Allergy Itching Uncoded 09/18/16 08:59 medication Date of admission: 07/24/17 03:28 Primary care physician: Michael Lopez CNP Consults: Psychiatry Discharging clinician: Mahin Hernandez Anticipated date of discharge: 07/25/17 - Patient Status Disposition: Transfer Psychiatric Hosp Condition: Fair Functional capacity at discharge: independent ambulation Overall status at discharge: patient is progressing back to baseline - Discharge Instructions Follow Up With: Michael Lopez CNP [Primary Care Provider] - - Diet and Activity Activity: increase activity as tolerated Diet: low fat, low cholesterol, low salt diet Hospital course: Mr. Thakkar is a 57 year old male with hx of DVTs and HTN brought to ED by family due to tremors and feeling ill for approx a week prior to admission. He had related significant alcohol intake and trying to cut back. He had been sober for 20 years prior. He also had not taken his medication for 3 days because he "didn't want to live like this." He was admitted for further evaluation and treatment. Mr Thakkar was admitted to [facility]. He was placed on Ativan CIWA as well as Librium PO and given beer as well. He was placed on thiamine and vitamins as well. He was quite depressed and tearful during hospitalization. He had no fever or chills. He had no significant confusion but has not been sleeping. He was evaluated by psychiatry and it was felt that he would benefit from an inpatient psychiatric admission. Though he is still in active alcohol withdrawal but not in DTs so he has been cleared to be discharged to . - Time Spent with Patient Total time spent providing and/or coordinating discharge services: - Constitutional Vitals: Temp Pulse Resp BP Pulse Ox 98.1 F 84 22 119/84 96 07/25/17 11:51 07/25/17 11:51 07/25/17 11:51 07/25/17 11:51 07/25/17 11:51 General appearance: Present: A&O X 3, answers questions appropriately Exam: Tearful and distressed. - Head Head exam: Present: normocephalic - Eye Eye exam: Present: EOMI, conjuntiva pink - ENT ENT exam: Present: mucous membranes moist - Respiratory Respiratory exam: Present: rhonchi. Absent: rales, wheezes - Cardiovascular Cardiovascular exam: Present: RRR. Absent: tachycardia - GI/Abdominal GI/Abdominal exam: Present: soft. Absent: tenderness - Extremities Exam Extremities exam: Present: warm. Absent: tenderness - Neurological Exam Neurological exam: Present: alert, oriented X3 - Skin Skin exam: Present: warm. Absent: rash
[2017-07-25] MEDS: *HR* Acetaminophen w/Cod 300-30 mg 1 TAB TABLET PO PRN (15:43)
[2017-07-26] MEDS: Ondansetron 4 MG/2 ML VIAL IVP PRN (04:15)
[2017-07-26] MEDS: Ipratropium/Albuterol Neb 3 ML IH SCH ×4 (04:41→22:35)
[2017-07-26] MEDS: Pantoprazole 40 MG VIAL IVP SCH (05:39)
[2017-07-26] MEDS: *HR* Heparin 5,000 UNIT/ML VIAL SQ SCH (05:39)
[2017-07-26] MEDS: Beer can PO SCH (08:57)
[2017-07-26] MEDS: Nicotine 14 MG PATCH.TD24 TD SCH (09:00)
[2017-07-26] MEDS: Furosemide 20 MG TABLET PO SCH (09:00)
[2017-07-26] MEDS: Vitamin B Complex/Vit C/Vit E 1 EACH TABLET PO SCH (09:00)
[2017-07-26] MEDS: Thiamine (B-1) 100 MG TABLET PO SCH (09:00)
[2017-07-26] MEDS: Folic Acid 1 MG TABLET PO SCH (09:00)
[2017-07-26] MEDS: Metoprolol XL (24 HR) Succ 50 MG TAB.ER.24H PO SCH (09:00)
--- NOTE | 2017-07-26 13:32 | Consult Note ---
Date of Encounter: 07/26/17 Time of Encounter: 12:00 Assessment & Recommendation (1) Major depress dis, severe Current visit: Yes Status: Acute (2) Suicidal ideations Current visit: Yes Status: Resolved (3) Alcohol dependence Current visit: Yes Status: Acute Qualifiers: Substance use status: in withdrawal Complication of substance-induced condition: uncomplicated Qualified Code(s): F10.230 - Alcohol dependence with withdrawal, uncomplicated History of Present Illness Requesting Physician: Mahin Hernandez DO Reason for consult: alcohol withdrawl, depression , suicidal ideation. History of present illness: Mr. Thakkar is a 57 year old male was seen today for follow up. Patient was accepted for admission to A1 for depression and suicidal ideation after being medically cleared and detox complete, if patient is medically stable , patient can be transferred to 1a . thank you for involving in patients care. CC: Mahin Hernandez DO Past Med Surg Social Fam HX - Past Medical History Medical history: DVT, GERD, hypertension - Past Surgical History Surgical History: orthopedic, other (Left shoulder surgery), vascular surgery ( IVC filter, Venous thrombectomy lower extremities) - Social History Smoking Status: Current every day smoker Smokeless Tobacco Status: No Alcohol use: heavy, recent Drug use: none - Family History Mother Hx Family Endocrine Disorder: Yes (DM) Medications & Allergies Lisinopril/Hydrochlorothiazide [Zestoretic 10-12.5 mg Tablet] 1 tab PO DAILY 11/03 [History] Omeprazole [PriLOSEC] 40 mg PO BID 09/18/16 [History] Tamsulosin [Flomax] 0.8 mg PO HS 09/18/16 [History] TraZODone 50 mg PO HS 09/18/16 [History] Acetaminophen with Codeine [Acetaminophen-Cod #4 Tablet] 1 tab PO Q6H PRN [History] Baclofen [Lioresal] 10 mg PO TID PRN 07/23/17 [History] Coumadin 2 mg PO DAILY 07/23/17 [History] Furosemide [Lasix] 20 mg PO DAILY 07/23/17 [History] Loperamide HCl [Anti-Diarrheal] 2 mg PO PER PKG DI PRN 07/23/17 [History] Metoprolol Succinate 100 mg PO DAILY 07/23/17 [History] Potassium Chloride [Klor-Con Sprinkle] 8 meq PO DAILY 07/23/17 [History] Rosuvastatin Calcium 40 mg PO HS 07/23/17 [History] Folic Acid 1 mg PO DAILY tablet 07/25/17 [Rx] GuaiFENesin ER [Mucinex] 1,200 mg PO BID tbbp.12hr 07/25/17 [Rx] Ipratropium/Albuterol Neb [Duoneb] 3 ml IH QIDR inhsol 07/25/17 [Rx] Mag Hydrox/Al Hydrox/Simeth [Maalox] 30 ml PO Q4H PRN udc 07/25/17 [Rx] Nicotine Patch [Nicoderm] 14 mg TD DAILY patch.td24 07/25/17 [Rx] Thiamine (B-1) [Vitamin B-1] 100 mg PO DAILY tablet 07/25/17 [Rx] Vitamin B Complex/Vit C/Vit E [Stresstab] 1 each PO DAILY tablet 07/25/17 [Rx] 3 Allergy/AdvReac Type Severity Reaction Status Date / Time some kind of depression Allergy Itching Uncoded 09/18/16 08:59 medication Review of Systems Psychiatric: Reports: depression, anxiety, suicidal ideation, anhedonia, difficulty concentrating, hopelessness Mental Status Exam Patient orientation: Yes Person, Yes Time, Yes Place Level of alertness: Alert Patient appearance: Appropriate Behavior: cooperative, anxious Psychomotor activity: Slowed Eye contact: Maintains Eye Contact Mood description: Depressed, Anxious Affect description: dysphoric Speech pattern: Slowed Thought process: Intact Thought content: Yes Intact, Yes Guilt Attention span: Unable to Sustain Attention Patient reliability: Reliable Historian Intelligence estimate: Average Judgment: Limited Insight: Partial Results - Vital Signs Vital signs: Temp Pulse Resp BP Pulse Ox 98.1 F 103 18 138/94 94 07/26/17 07:37 07/26/17 07:37 07/26/17 07:37 07/26/17 07:37 07/26/17 07:37 - Labs Labs: Laboratory Last Values WBC 6.3 K/mcL (4.3-11.1) 07/25/17 05:17 RBC 4.22 M/mcL (4.19-5.50) 07/25/17 05:17 Hgb 13.4 g/dL (12.9-16.9) 07/25/17 05:17 Hct 40.1 % (37.5-50.1) 07/25/17 05:17 MCV 95.0 fL (83.0-100.0) 07/25/17 05:17 MCH 31.8 pg (28.0-33.3) 07/25/17 05:17 MCHC 33.4 g/dL (31.6-35.5) 07/25/17 05:17 RDW 15.5 % (11.5-14.5) H 07/25/17 05:17 Plt Count 192 K/mcL (140-400) 07/25/17 05:17 MPV 9.5 fL (9.4-12.4) 07/25/17 05:17 Immature Gran % 0.3 % (0-4) 07/23/17 20:47 Seg Neutrophils % 69.8 % 07/23/17 20:47 Lymphocytes % 20.6 % 07/23/17 20:47 Monocytes % 8.6 % 07/23/17 20:47 Eosinophils % 0.4 % 07/23/17 20:47 Basophils % 0.3 % 07/23/17 20:47 Neutrophils # 6.4 K/mcL (1.6-8.9) 07/23/17 20:47 Lymphocytes # 1.9 K/mcL (0.6-4.6) 07/23/17 20:47 Monocytes # 0.8 K/mcL (0.0-1.3) 07/23/17 20:47 Eosinophils # 0.0 K/mcL (0.0-0.6) 07/23/17 20:47 Basophils # 0.0 K/mcL (0.0-0.2) 07/23/17 20:47 PT 23.0 Seconds (9.4-12.1) H 07/24/17 00:46 INR 2.1 07/24/17 00:46 APTT 34.3 Seconds (26.0-36.0) 07/24/17 00:46 Sodium 138 mEq/L (136-145) 07/25/17 05:17 Potassium 3.6 mEq/L (3.5-4.5) 07/25/17 05:17 Chloride 103 mEq/L (98-109) 07/25/17 05:17 Carbon Dioxide 28 mEq/L (19-29) 07/25/17 05:17 BUN 7 mg/dL (8-26) L 07/25/17 05:17 Creatinine 0.72 mg/dL (0.72-1.25) 07/25/17 05:17 Est GFR ( Amer) > 60 (> 60) 07/25/17 05:17 Est GFR (Non-Af Amer) > 60 (> 60) 07/25/17 05:17 BUN/Creatinine Ratio 10 (6-26) 07/25/17 05:17 Glucose 96 mg/dL (70-99) 07/25/17 05:17 POC Glucose 199 (58-89) H 07/24/17 11:08 Calculated Osmolality 284 (280-300) 07/25/17 05:17 Lactic Acid 2.8 mmol/L (0.5-2.2) H 07/24/17 00:46 Calcium 8.3 mg/dL (8.6-10.8) L 07/25/17 05:17 Phosphorus 3.3 mg/dL (2.3-4.7) 07/23/17 22:30 Magnesium 1.8 mg/dL (1.6-2.6) 07/23/17 22:30 Total Bilirubin 0.8 mg/dL (0.2-1.2) 07/24/17 04:19 AST 68 Units/L (5-34) H 07/24/17 04:19 ALT 45 Units/L (0-55) 07/24/17 04:19 Alkaline Phosphatase 64 Units/L (38-126) 07/24/17 04:19 Ammonia 22 mcmol/L (18-72) 07/23/17 20:47 Creatine Kinase 70 Units/L (30-200) 07/23/17 20:47 Troponin I 0.01 ng/mL (0-0.03) 07/23/17 20:47 B-Natriuretic Peptide < 10 pg/mL (0-100) 07/23/17 20:47 Serum Total Protein 6.3 g/dL (6.0-8.3) 07/24/17 04:19 Albumin 3.1 g/dL (3.5-5.0) L 07/24/17 04:19 Globulin 3.2 g/dL (2.4-3.5) 07/24/17 04:19 Albumin/Globulin Ratio 1.0 (1.1-2.2) L 07/24/17 04:19 TSH 1.441 mcIU/mL (0.350-4.840) 07/24/17 04:19 Urine Color Yellow (Yellow) 07/23/17 21:42 Urine Clarity Clear (Clear) 07/23/17 21:42 Urine pH 6.0 pH Units (5.0-8.0) 07/23/17 21:42 Ur Specific [place] < 1.005 (1.010-1.025) L 07/23/17 21:42 Urine Protein Negative mg/dL (Neg-Trace) 07/23/17 21:42 Urine Glucose (UA) Normal mg/dL (Normal) 07/23/17 21:42 Urine Ketones Negative mg/dL (Negative) 07/23/17 21:42 Urine Blood Negative (Negative) 07/23/17 21:42 Urine Nitrite Negative (Negative) 07/23/17 21:42 Urine Bilirubin Negative (Negative) 07/23/17 21:42 Urine Urobilinogen Normal mg/dL (Normal) 07/23/17 21:42 Ur Leukocyte Esterase Negative (Negative) 07/23/17 21:42 Ur Culture Indicated? NO (NO) 07/23/17 21:42 Salicylates < 5.0 mg/dL (15-30) L 07/23/17 22:39 Urine Opiates Screen Negative ng/mL (Rvwoen=884) 07/23/17 21:43 Acetaminophen < 1.0 mcg/mL (10-30) L 07/23/17 22:39 Ur Barbiturates Screen Negative ng/mL (Cehlbo=826) 07/23/17 21:43 Ur Phencyclidine Scrn Negative ng/mL (Cutoff=25) 07/23/17 21:43 Ur Amphetamines Screen Negative ng/mL (Cpkluq=9101) 07/23/17 21:43 U Benzodiazepines Scrn Negative ng/mL (Bvrvyn=035) 07/23/17 21:43 Urine Cocaine Screen Negative ng/mL (Cutoff= 300) 07/23/17 21:43 U Marijuana (THC) Screen Negative ng/mL (Cutoff = 50) 07/23/17 21:43 Ethyl Alcohol 115 mg/dL (0-10) H 07/24/17 04:19 Consult Discharge Plan - Plan Referrals: John,Michael W, JOSEFINA [Primary Care Provider] -
--- NOTE | 2017-07-26 14:24 | Internal Med Progress Note ---
Date of Encounter: 07/26/17 Time of Encounter: 07:45 - Assessment and plan (1) Alcohol dependence Current Visit: Yes Status: Acute Assessment and plan: Doing OK at this time with no scheduled medication. Qualifiers: Substance use status: in withdrawal Complication of substance-induced condition: uncomplicated Qualified Code(s): F10.230 - Alcohol dependence with withdrawal, uncomplicated (2) Major depress dis, severe Current Visit: Yes Status: Acute Assessment and plan: Plan for discharge to 1A later today. (3) Suicidal ideations Current Visit: Yes Status: Resolved Assessment and plan: Discharge to 1A today. (4) Tobacco abuse Current Visit: Yes Status: Chronic Assessment and plan: Cessation counselling. Nicotine patch. (5) HTN (hypertension) Current Visit: Yes Status: Chronic Assessment and plan: Controlled. Continue medication. Qualifiers: Hypertension type: essential hypertension Qualified Code(s): I10 - Essential (primary) hypertension (6) History of DVT (deep vein thrombosis) Current Visit: Yes Status: Chronic Assessment and plan: On coumadin. - Subjective Interval history: Mr Thakkar is currently admitted for acute alcohol intoxication and withdrawal as well as depression with suicidal ideation. He remains moderate to high risk at this time. He will be going to inpatient psychiatry today. Mr Thakkar feels OK. He is still shaky but does not want beer or meds. No confusion or hallucinations. Slept OK last night. - Constitutional Vitals: Temp Pulse Resp BP Pulse Ox 98.1 F 103 18 138/94 94 07/26/17 07:37 07/26/17 07:37 07/26/17 07:37 07/26/17 07:37 07/26/17 07:37 General appearance: Present: A&O X 3, answers questions appropriately - Head Head exam: Present: normocephalic - Eye Eye exam: Present: EOMI, conjuntiva pink - ENT ENT exam: Present: mucous membranes dry - Respiratory Respiratory exam: Present: CTAB. Absent: rales, rhonchi, wheezes - Cardiovascular Cardiovascular exam: Present: RRR. Absent: tachycardia - GI/Abdominal GI/Abdominal exam: Present: soft. Absent: tenderness - Extremities Exam Extremities exam: Present: warm. Absent: tenderness - Neurological Exam Neurological exam: Present: alert, oriented X3 Additional comments: Tremulous at rest. - Skin Skin exam: Present: dry, warm. Absent: rash Internal Medicine: Result - Labs CBC & Chem 7: 07/25/17 05:17 07/25/17 05:17 - ABG Interpretation ABG results: PT/INR, D-dimer PT 23.0 Seconds (9.4-12.1) H 07/24/17 00:46 Consult Discharge Plan - Plan Referrals: Michael Lopez, [employer] [Primary Care Provider] -
[2017-07-26] MEDS ORDERED: *HR* Warfarin 2 MG TABLET PO ONE (14:28)
[2017-07-26] MEDS: *HR* Acetaminophen w/Cod 300-30 mg 1 TAB TABLET PO PRN (17:10)
[2017-07-26 21:00] VITALS: BP 122/85
--- NOTE | 2017-07-27 17:52 | Electrocardiograph Report ---
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
== END 2017-07-26 23:30 | DRG 896 ==
LOC: 2NENU 19:30 → EMEROO 19:30 → 2NENU 23:39
PROVIDERS: ADMIT Family Medicine; ATTEND Internal Medicine

== ENCOUNTER 2017-07-26 23:11 | Inpatient (IN) ==
[2017-07-27] MEDS ORDERED: Baclofen 10 MG TABLET PO PRN (00:06)
[2017-07-27] MEDS ORDERED: Mag Hydrox/Al Hydrox/Simeth 30 ML UDC PO PRN (00:06)
[2017-07-27] MEDS ORDERED: *HR* LORazepam 2 MG/ML VIAL IM PRN (00:12)
[2017-07-27] MEDS ORDERED: MOM Conc 10 ML UD.LIQ PO PRN (00:12)
[2017-07-27] MEDS ORDERED: Haloperidol Lactate 5 MG/ML VIAL IM PRN (00:12)
[2017-07-27] MEDS ORDERED: traZODone 50 MG TABLET PO PRN (00:12)
[2017-07-27] MEDS ORDERED: *HR* LORazepam 1 MG TABLET PO PRN (00:12)
[2017-07-27] MEDS ORDERED: hydrOXYzine pamoate 25 MG CAPSULE PO PRN (00:12)
[2017-07-27] MEDS: *HR* Acetaminophen w/Cod 300-30 mg 1 TAB TABLET PO PRN ×2 (04:26→17:10)
[2017-07-27] MEDS: Ipratropium/Albuterol Neb 3 ML IH SCH ×2 (06:35→14:38)
[2017-07-27] MEDS: Vitamin B Complex/Vit C/Vit E 1 EACH TABLET PO SCH (09:02)
[2017-07-27] MEDS: Furosemide 20 MG TABLET PO SCH (09:03)
[2017-07-27] MEDS: Thiamine (B-1) 100 MG TABLET PO SCH (09:03)
[2017-07-27] MEDS: Metoprolol XL (24 HR) Succ 50 MG TAB.ER.24H PO SCH (09:03)
[2017-07-27] MEDS: Gabapentin 100 MG CAPSULE PO SCH ×3 (09:03→21:42)
[2017-07-27] MEDS: Folic Acid 1 MG TABLET PO SCH (09:03)
[2017-07-27] MEDS: Nicotine 14 MG PATCH.TD24 TD SCH (09:15)
--- NOTE | 2017-07-27 11:50 | Psychiatry History & Physical ---
Date of Encounter: 07/27/17 Time of Encounter: 11:50 History of Present Illness Patient Stated Chief Complaint: depression Medicare Admission Attestation: For traditional Medicare patients the provided hospital inpatient services are reasonable and necessary and in the case of services not specified as inpatient -only under 42 CFR 419.22 (n), that they are appropriately provided as inpatient services in accordance 42 CFR 412.3. For Critical Access Hospital the patient may reasonably be expected to be discharged or transferred to a hospital within 96 hours after admission to the Critical Access Hospital. Admitted From: Home Plans for Post Hospital Care: Home History of Present Illness: Mr. Thakkar is a 57 year old male who was transferred from a medical floor. Admitted medically due to heavy alcohol use. Sober for twenty years then relapsed approximately a year ago. Drinks 8 tall beers a day. Vital signs variable here but overall not too bad. However, he looks unhealthy. Multiple medical problems. Takes Coumadin for blood clots. Needs vascular surgery but canceled scheduled surgery. High cholesterol and blood pressure. Admits he is depressed. Denies active SI but agrees he needs treatment for his mood. Not currently linked with services. Lives with and son. Can return home but needs to address alcohol dependence first. Seems agreeable to whatever is recommended. Not much of a psych history but he is currently on Cymbalta. Discussed increasing dose since he is already taking and tolerating that particular medication. Will be a long time before sleep and mood normalize given heavy alcohol use. Substance abuse treatment is the priority. Past Med Surg Social Fam HX - Past Medical History Medical history: DVT, GERD, hypertension - Past Psychiatric History Psychiatric history: Reports: depression Family psychiatric history: Unknown Family History of Suicide: Unknown - Past Surgical History Surgical History: orthopedic, other, vascular surgery - Social History Smoking Status: Current every day smoker Smokeless Tobacco Status: No Alcohol use: heavy, recent Drug use: none - Family History Mother Hx Family Endocrine Disorder: Yes (DM) Medications & Allergies Lisinopril/Hydrochlorothiazide [Zestoretic 10-12.5 mg Tablet] 1 tab PO DAILY 11/03 [History] Omeprazole [PriLOSEC] 40 mg PO BID 09/18/16 [History] Tamsulosin [Flomax] 0.8 mg PO HS 09/18/16 [History] TraZODone 50 mg PO HS 09/18/16 [History] Acetaminophen with Codeine [Acetaminophen-Cod #4 Tablet] 1 tab PO Q6H PRN [History] Baclofen [Lioresal] 10 mg PO TID PRN 07/23/17 [History] Furosemide [Lasix] 20 mg PO DAILY 07/23/17 [History] Loperamide HCl [Anti-Diarrheal] 2 mg PO PER PKG DI PRN 07/23/17 [History] Metoprolol Succinate 100 mg PO DAILY 07/23/17 [History] Potassium Chloride [Klor-Con Sprinkle] 8 meq PO DAILY 07/23/17 [History] Rosuvastatin Calcium 40 mg PO HS 07/23/17 [History] Warfarin [Coumadin] 2 mg PO DAILY #0 07/23/17 [History] Folic Acid 1 mg PO DAILY tablet 07/25/17 [Rx] GuaiFENesin ER [Mucinex] 1,200 mg PO BID tbbp.12hr 07/25/17 [Rx] Ipratropium/Albuterol Neb [Duoneb] 3 ml IH QIDR inhsol 07/25/17 [Rx] Mag Hydrox/Al Hydrox/Simeth [Maalox] 30 ml PO Q4H PRN udc 07/25/17 [Rx] Nicotine Patch [Nicoderm] 14 mg TD DAILY patch.td24 07/25/17 [Rx] Thiamine (B-1) [Vitamin B-1] 100 mg PO DAILY tablet 07/25/17 [Rx] Vitamin B Complex/Vit C/Vit E [Stresstab] 1 each PO DAILY tablet 07/25/17 [Rx] 3 Allergy/AdvReac Type Severity Reaction Status Date / Time some kind of depression Allergy Itching Uncoded 09/18/16 08:59 medication Review of Systems Constitutional: Reports: weakness Eyes: Denies: eye pain, vision change Ears, Nose, Throat: Denies: ear pain, throat pain, dental pain, hearing loss, congestion Cardiovascular: Reports: dyspnea on exertion Respiratory: Denies: cough, dyspnea, wheezes Gastrointestinal: Reports: nausea Genitourinary male: Denies: urgency, dysuria, frequency, genital lesions Musculoskeletal: Reports: myalgia Integumentary: Reports: other Neurological: Reports: weakness Psychiatric: Reports: depression Endocrine: Reports: fatigue Hematologic/Lymphatic: Reports: easy bleeding, easy bruising Allergic/Immunologic: Denies: urticaria, itchy eyes Mental Status Exam Patient orientation: Yes Person, Yes Time, Yes Place Level of alertness: Alert Patient appearance: Appropriate Behavior: calm, cooperative Psychomotor activity: Slowed Eye contact: Maintains Eye Contact Mood description: Depressed Affect description: congruent with mood Speech pattern: Normal rate, Normal rhythm, Normal tone Speech volume: Normal Thought process: Thought Blocking Thought content: No Suicidal ideation, No Homicidal ideation, No Overt delusions Perceptual disturbances: No Auditory hallucinations, No Visual hallucinations Attention span: Capable of Focused Attention Memory description: Grossly Intact Patient reliability: Reliable Historian Intelligence estimate: Average Judgment: Limited Insight: Partial Exam - HEENT Head exam IM: Present: atraumatic Eye exam IM: Present: EOMI ENT exam IM: Present: mucous membranes moist - Neurological Neurological exam IM: Present: alert, oriented X3 - Respiratory Respiratory exam IM: Present: CTAB - GI/Abdominal GI/Abdominal exam IM: Present: normal bowel sounds - Extremities Extremities exam IM: Present: full ROM - Skin Skin exam IM: Present: warm Results - Vital Signs Vital signs: Temp Pulse Resp BP 97.4 F L 120 20 122/82 07/27/17 09:00 07/27/17 09:00 07/27/17 09:00 07/27/17 09:00 Assessment and Plan (1) Alcohol dependence Current visit: No Status: Acute Plan: Admit inpatient for safety and stabilization, Close observation, Suicide Precautions per unit protocol, Encourage participation in unit milieu, Group Therapy, Monitor sleep, Monitor appetite Risks, benefits, side effects, alternatives discussed w/pt: Yes Patient agreeable to treatment: Yes Plans for Post Hospital Care: Home Estimated Length of Stay (Days): 4 Qualifiers: Substance use status: in withdrawal Complication of substance-induced condition: uncomplicated Qualified Code(s): F10.230 - Alcohol dependence with withdrawal, uncomplicated (2) Lactic acidosis Current visit: No Status: Acute Risks, benefits, side effects, alternatives discussed w/pt: Yes Patient agreeable to treatment: Yes Plans for Post Hospital Care: Home Estimated Length of Stay (Days): 4 (3) Major depress dis, severe Current visit: No Status: Acute Plan: Admit inpatient for safety and stabilization, Close observation, Suicide Precautions per unit protocol, Encourage participation in unit milieu, Group Therapy, Monitor sleep, Monitor appetite Risks, benefits, side effects, alternatives discussed w/pt: Yes Patient agreeable to treatment: Yes Plans for Post Hospital Care: Home Estimated Length of Stay (Days): 4
[2017-07-27] MEDS: *HR* Warfarin 2 MG TABLET PO SCH (16:56)
[2017-07-27] MEDS ORDERED: Ipratropium/Albuterol Neb 3 ML IH PRN (18:26)
[2017-07-27] MEDS: traZODone 50 MG TABLET PO SCH (21:42)
[2017-07-28] MEDS: Gabapentin 100 MG CAPSULE PO SCH ×3 (08:45→21:40)
[2017-07-28] MEDS: Metoprolol XL (24 HR) Succ 50 MG TAB.ER.24H PO SCH (08:46)
[2017-07-28] MEDS: Furosemide 20 MG TABLET PO SCH (08:46)
[2017-07-28] MEDS: Folic Acid 1 MG TABLET PO SCH (08:47)
[2017-07-28] MEDS: Thiamine (B-1) 100 MG TABLET PO SCH (08:47)
[2017-07-28] MEDS: Nicotine 14 MG PATCH.TD24 TD SCH (08:47)
[2017-07-28] MEDS: Vitamin B Complex/Vit C/Vit E 1 EACH TABLET PO SCH (08:47)
--- NOTE | 2017-07-28 13:24 | Psychiatry Progress Note ---
Date of Encounter: 07/28/17 Time of Encounter: 13:17 Subjective Interval history: Client reports he is feeling a little better today. Still does not have much of an appetite but he was able to sleep last night and the rest has benefitted him. He is forcing himself to eat some and to be out of bed. Tries to participate in groups. BP has been stable but he is on three antihypertensives and he was tachy this morning. Client was concerned about the number of pills he is taking. Discussed how most everything that is new to him is vitamin replacement and blood pressure management. Home health and outpatient AOD set up [place] in [place]. Client did not want residential treatment. and son supportive and have agreed there will be no alcohol in the home. Client admits to depression but denies SI and believes increase in Cymbalta is helping. Still looks physically bad (sallow skin, shuffling gait) but he is hopefully turning the corner. Want to monitor him for at least one more night as he is at a high risk for relapse and his physical and mental health is tenuous. Review of Systems Constitutional: Reports: weakness Eyes: Denies: eye pain, vision change Ears, Nose, Throat: Denies: ear pain, throat pain, dental pain, hearing loss, congestion Cardiovascular: Denies: chest pain, palpitations, dyspnea on exertion Respiratory: Denies: cough, dyspnea, wheezes Gastrointestinal: Reports: other Musculoskeletal: Reports: myalgia Neurological: Reports: weakness, other Psychiatric: Reports: depression Objective: Exam Patient orientation: Yes Person, Yes Time, Yes Place Level of alertness: Alert Patient appearance: Appropriate Behavior: calm, cooperative Psychomotor activity: Slowed Eye contact: Maintains Eye Contact Mood description: Depressed Affect description: congruent with mood Speech pattern: Delayed Speech volume: Soft/Quiet Thought process: Thought Blocking Thought content: No Suicidal ideation, No Homicidal ideation, No Overt delusions Perceptual disturbances: No Auditory hallucinations, No Visual hallucinations Judgment: Limited Insight: Partial Results - Vital Signs Vital Signs: Temp Pulse Resp BP 97.1 F L 121 20 108/81 07/28/17 09:00 07/28/17 09:00 07/28/17 09:00 07/28/17 09:00 Assessment and Plan (1) Alcohol dependence Current visit: No Status: Acute Plan: Continue hospitalization, Close observation, Suicide Precautions per unit protocol, Encourage participation in unit milieu, Group Therapy, Monitor sleep, Monitor appetite Risks, benefits, side effects, alternatives discussed w/pt: Yes Patient agreeable to treatment: Yes Qualifiers: Substance use status: in withdrawal Complication of substance-induced condition: uncomplicated Qualified Code(s): F10.230 - Alcohol dependence with withdrawal, uncomplicated (2) Lactic acidosis Current visit: No Status: Acute Risks, benefits, side effects, alternatives discussed w/pt: Yes Patient agreeable to treatment: Yes (3) Major depress dis, severe Current visit: No Status: Acute Plan: Continue hospitalization, Close observation, Suicide Precautions per unit protocol, Encourage participation in unit milieu, Group Therapy, Monitor sleep, Monitor appetite Risks, benefits, side effects, alternatives discussed w/pt: Yes Patient agreeable to treatment: Yes Consult Discharge Plan - Plan Referrals: Richard Lou [Other] - 07/31/17 9:00 am (The above appointment is with Waleska Colón for outpatient mental health and substance abuse counseling services. Please bring your photo ID and insurance cards to this appointment.) Michael Lopez, CRUST SORTER [Non-Partnered Physician] - 08/06/17 3:00 pm (The above appointment is with Michael Lopez for primary health care and medication management services.)
[2017-07-28] MEDS: *HR* Warfarin 2 MG TABLET PO SCH (17:56)
[2017-07-28] MEDS: traZODone 50 MG TABLET PO SCH (21:40)
[2017-07-29] MEDS: Gabapentin 100 MG CAPSULE PO SCH ×3 (08:30→21:04)
[2017-07-29] MEDS: Nicotine 14 MG PATCH.TD24 TD SCH (08:30)
[2017-07-29] MEDS: Vitamin B Complex/Vit C/Vit E 1 EACH TABLET PO SCH (08:30)
[2017-07-29] MEDS: Furosemide 20 MG TABLET PO SCH (08:30)
[2017-07-29] MEDS: Thiamine (B-1) 100 MG TABLET PO SCH (08:31)
[2017-07-29] MEDS: Metoprolol XL (24 HR) Succ 50 MG TAB.ER.24H PO SCH (08:31)
[2017-07-29] MEDS: Folic Acid 1 MG TABLET PO SCH (08:32)
[2017-07-29 08:33] LABS: INR 1.1; Prothrombin Time 12.3 Seconds (9.4-12.1)
--- NOTE | 2017-07-29 09:33 | Psychiatry Progress Note ---
Date of Encounter: 07/29/17 Time of Encounter: 09:30 Subjective Interval history: Not feeling well this morning. Did not sleep at all last night. Got up at 5am to ask for a sleep aide but it was too late. Staff prepared him tea but client reports it did not help. Slept well the night before and had a good day yesterday. Looked brighter. More social. Discussed how sleep will likely be problematic for a while given recent heavy alcohol use. Took scheduled Trazodone last night with no benefit. Will try Seroquel tonight. Client complained of some constipation and Seroquel can worsen this so will add Colace as well. Home health services being set up for tomorrow so may look at discharge tomorrow if he has a decent night. Mood is slowly improving and client denies SI. INR drawn this morning. Level less than 2-likely because he is not drinking heavily anymore. Coumadin may need adjusted. Review of Systems Constitutional: Denies: fever, chills, weakness, weight change Eyes: Denies: eye pain, vision change Ears, Nose, Throat: Denies: ear pain, throat pain, dental pain, hearing loss, congestion Cardiovascular: Denies: chest pain, palpitations, dyspnea on exertion Respiratory: Denies: cough, dyspnea, wheezes Gastrointestinal: Reports: constipation Musculoskeletal: Denies: joint swelling, joint pain Neurological: Denies: headache, weakness, numbness, memory loss Psychiatric: Reports: depression Objective: Exam Patient orientation: Yes Person, Yes Time, Yes Place Level of alertness: Alert Patient appearance: Appropriate, Well Groomed Behavior: calm, cooperative Psychomotor activity: Slowed Eye contact: Maintains Eye Contact Mood description: Depressed Affect description: congruent with mood Speech pattern: Normal rate, Normal rhythm, Normal tone Speech volume: Normal Thought process: Linear Thought content: No Suicidal ideation, No Homicidal ideation, No Overt delusions Perceptual disturbances: No Auditory hallucinations, No Visual hallucinations Judgment: Fair Insight: Partial Results - Vital Signs Vital Signs: Temp Pulse Resp BP 98.0 F 80 20 108/73 07/28/17 20:28 07/28/17 20:28 07/28/17 20:28 07/28/17 20:28 - Labs Labs: Laboratory Results - last 24 hr 07/29/17 07:53 PT 12.3 H INR 1.1 Assessment and Plan (1) Alcohol dependence Current visit: No Status: Acute Plan: Continue hospitalization, Close observation, Suicide Precautions per unit protocol, Encourage participation in unit milieu, Group Therapy, Monitor sleep, Monitor appetite Risks, benefits, side effects, alternatives discussed w/pt: Yes Patient agreeable to treatment: Yes Qualifiers: Substance use status: in withdrawal Complication of substance-induced condition: uncomplicated Qualified Code(s): F10.230 - Alcohol dependence with withdrawal, uncomplicated (2) Lactic acidosis Current visit: No Status: Acute Risks, benefits, side effects, alternatives discussed w/pt: Yes Patient agreeable to treatment: Yes (3) Major depress dis, severe Current visit: No Status: Acute Plan: Continue hospitalization, Close observation, Suicide Precautions per unit protocol, Encourage participation in unit milieu, Group Therapy, Monitor sleep, Monitor appetite Risks, benefits, side effects, alternatives discussed w/pt: Yes Patient agreeable to treatment: Yes Consult Discharge Plan - Plan Referrals: Richard Lou [Other] - 07/31/17 9:00 am (The above appointment is with Waleska Colón for outpatient mental health and substance abuse counseling services. Please bring your photo ID and insurance cards to this appointment.) Michael Lopez, BILLIARD TABLE ASSEMBLER [Non-Partnered Physician] - 08/06/17 3:00 pm (The above appointment is with Michael Lopez for primary health care and medication management services.)
[2017-07-29] MEDS: *HR* Warfarin 2 MG TABLET PO SCH (18:00)
[2017-07-29] MEDS: traZODone 50 MG TABLET PO SCH (21:04)
[2017-07-29] MEDS: *HR* Acetaminophen w/Cod 300-30 mg 1 TAB TABLET PO PRN (21:04)
[2017-07-30 08:01] LABS: INR 1.2; Prothrombin Time 13.1 Seconds (9.4-12.1)
[2017-07-30] MEDS: Ipratropium/Albuterol Neb 3 ML IH SCH (08:01)
[2017-07-30] MEDS: Nicotine 14 MG PATCH.TD24 TD SCH (08:35)
[2017-07-30] MEDS: Vitamin B Complex/Vit C/Vit E 1 EACH TABLET PO SCH (08:36)
[2017-07-30] MEDS: Gabapentin 100 MG CAPSULE PO SCH (08:36)
[2017-07-30] MEDS: Folic Acid 1 MG TABLET PO SCH (08:36)
[2017-07-30] MEDS: Thiamine (B-1) 100 MG TABLET PO SCH (08:36)
[2017-07-30] MEDS: Furosemide 20 MG TABLET PO SCH (08:36)
[2017-07-30] MEDS: Metoprolol XL (24 HR) Succ 50 MG TAB.ER.24H PO SCH (08:36)
[2017-07-30 09:36] VITALS: BP 111/80
--- NOTE | 2017-07-30 10:35 | Discharge Summary ---
Date of Encounter: 07/30/17 Time of Encounter: 10:30 Diagnosis - Discharge Diagnosis (1) Alcohol dependence Status: Acute Qualifiers: Substance use status: in withdrawal Complication of substance-induced condition: uncomplicated Qualified Code(s): F10.230 - Alcohol dependence with withdrawal, uncomplicated (2) Lactic acidosis Status: Acute (3) Major depress dis, severe Status: Acute Medications - Discharge Medications Prescriptions: DULoxetine [Cymbalta] 60 mg PO DAILY #14 capsule. Quetiapine Fumarate [Seroquel] 50 mg PO HS #14 tablet traZODone [TraZODone] 50 mg PO HS #7 tablet Lisinopril/Hydrochlorothiazide [Zestoretic 10-12.5 mg Tablet] 1 tab PO DAILY 11/03 [History] Omeprazole [PriLOSEC] 40 mg PO BID 09/18/16 [History] Tamsulosin [Flomax] 0.8 mg PO HS 09/18/16 [History] Acetaminophen with Codeine [Acetaminophen-Cod #4 Tablet] 1 tab PO Q6H PRN [History] Baclofen [Lioresal] 10 mg PO TID PRN 07/23/17 [History] Furosemide [Lasix] 20 mg PO DAILY 07/23/17 [History] Metoprolol Succinate 100 mg PO DAILY 07/23/17 [History] Potassium Chloride [Klor-Con Sprinkle] 8 meq PO DAILY 07/23/17 [History] Rosuvastatin Calcium 40 mg PO HS 07/23/17 [History] Warfarin [Coumadin] 2 mg PO DAILY #0 07/23/17 [History] Folic Acid 1 mg PO DAILY tablet 07/25/17 [Rx] GuaiFENesin ER [Mucinex] 1,200 mg PO BID tbbp.12hr 07/25/17 [Rx] Ipratropium/Albuterol Neb [Duoneb] 3 ml IH QIDR inhsol 07/25/17 [Rx] Nicotine Patch [Nicoderm] 14 mg TD DAILY patch.td24 07/25/17 [Rx] Thiamine (B-1) [Vitamin B-1] 100 mg PO DAILY tablet 07/25/17 [Rx] Vitamin B Complex/Vit C/Vit E [Stresstab] 1 each PO DAILY tablet 07/25/17 [Rx] DULoxetine [Cymbalta] 60 mg PO DAILY #14 capsule. 07/30/17 [Rx] Docusate [Colace] 100 mg PO BID capsule 07/30/17 [Rx] Gabapentin [Neurontin] 100 mg PO TID capsule 07/30/17 [Rx] Quetiapine Fumarate [Seroquel] 50 mg PO HS #14 tablet 07/30/17 [Rx] traZODone [TraZODone] 50 mg PO HS #7 tablet 07/30/17 [Rx] 3 Allergy/AdvReac Type Severity Reaction Status Date / Time some kind of depression Allergy Itching Uncoded 09/18/16 08:59 medication Results Procedures and tests throughout hospitalization: Completed Lab Orders Category Date Time Status INR/PT [Prothrombin Time INR] [COAG] AM 0400 Lab 07/29/17 07:53 Completed PT/INR [Prothrombin Time INR] [COAG] Routine Lab 07/30/17 07:36 Completed Provider Date of admission: 07/26/17 23:11 Primary care physician: PCP NONE Discharging clinician: Angela Child Assessment and Plan - Patient/Caregiver Discharge Instructions Activity: resume usual activities as tolerated Diet: regular diet Additional Instructions: [facility] will start home health services on 07/31/2017 in the afternoon. They will call you to set up a specific time. Their office number is . - Follow up Plan Follow up with: Richard Lou [Other] - 07/31/17 9:00 am (The above appointment is with Waleska Colón for outpatient mental health and substance abuse counseling services. Please bring your photo ID and insurance cards to this appointment.) Michael Lopez, EMPLOYMENT ADJUDICATOR [Non-Partnered Physician] - 08/06/17 3:00 pm (The above appointment is with Michael Lopez for primary health care and medication management services.) Overall status at discharge: Stable Disposition: Home Health Service Hospital Course Hospital course: Mr. Thakkar is a 57 year old male who was admitted secondary to depression and heavy alcohol use. He was admitted medically and then transferred to psychiatry when clinically stable. Throughout his inpatient stay he was calm and cooperative. He was consistently pleasant to staff and his peers. He consistently denied SI but admitted to a depressed mood. He was prescribed Cymbalta at the time of admission and this medication was titrated for clinical effect. He was also given prn Seroquel and Trazodone at night to help him sleep. Once he passed the acute withdrawal phase he started feeling better and he looked brighter. He was set up with AOD treatment and home health prior to discharge. He was due to met with his counselor and home health services were scheduled to start within 24 hours of discharge. His INR was low which is not surprising given his recent heavy drinking. A repeat level was drawn on the day of discharge to verify the results and the information will be sent to his providers for ongoing care. - Time Spent with Patient Total time spent providing and/or coordinating discharge services: Quality - Multiple Antipsychotics Patient discharged on 2 or more antipsychotic medications: No Procedures - Procedures Procedures: Medication Management, Crisis Stabilization, Supportive Therapy, Group Therapy Mental Status Exam - Mental Status Exam Patient orientation: Yes Person, Yes Time, Yes Place Level of alertness: Alert Patient appearance: Appropriate, Well Groomed Behavior: calm, cooperative Psychomotor activity: Slowed Eye contact: Maintains Eye Contact Mood description: Depressed Affect description: congruent with mood Speech pattern: Normal rate, Normal rhythm, Normal tone Speech Volume: Normal Thought process: Linear, Goal Oriented Thought Content: No Suicidal ideation, No Homicidal ideation, No Overt delusions Perceptual Disturbances: No Auditory hallucinations, No Visual hallucinations Judgment: Fair Insight: Partial
--- NOTE | 2017-07-30 11:32 | Physician Discharge Referral ---
Home Health/Hosp Referral Info Transfer to: Home Health ([facility]) Attending Provider: lizet priest Provider in Charge Post Discharge: PCP (analisa orourke) - Diagnosis (1) Alcohol dependence Status: Acute (2) Lactic acidosis Status: Acute (3) Major depress dis, severe Status: Acute - Respiratory Orders None Smoking Cessation: Smoking cessation has been advised. For more information, call the [place] Tobacco Quit Line at 8-761-XXKT-NOW. - Diet/Nutrition Diet/Nutrition Orders: Regular - Activity Activity Orders: Up ad laurita - Services Needed Following services are medically necessary services: Nursing (medication education and reconciliation, PT/INR per PCP) - Transfer Medications Prescriptions: DULoxetine [Cymbalta] 60 mg PO DAILY #14 capsule. Quetiapine Fumarate [Seroquel] 50 mg PO HS #14 tablet traZODone [TraZODone] 50 mg PO HS #7 tablet Home Medications: Lisinopril/Hydrochlorothiazide [Zestoretic 10-12.5 mg Tablet] 1 tab PO DAILY 11/03 [History] Omeprazole [PriLOSEC] 40 mg PO BID 09/18/16 [History] Tamsulosin [Flomax] 0.8 mg PO HS 09/18/16 [History] Acetaminophen with Codeine [Acetaminophen-Cod #4 Tablet] 1 tab PO Q6H PRN [History] Baclofen [Lioresal] 10 mg PO TID PRN 07/23/17 [History] Furosemide [Lasix] 20 mg PO DAILY 07/23/17 [History] Metoprolol Succinate 100 mg PO DAILY 07/23/17 [History] Potassium Chloride [Klor-Con Sprinkle] 8 meq PO DAILY 07/23/17 [History] Rosuvastatin Calcium 40 mg PO HS 07/23/17 [History] Warfarin [Coumadin] 2 mg PO DAILY #0 07/23/17 [History] Folic Acid 1 mg PO DAILY tablet 07/25/17 [Rx] GuaiFENesin ER [Mucinex] 1,200 mg PO BID tbbp.12hr 07/25/17 [Rx] Ipratropium/Albuterol Neb [Duoneb] 3 ml IH QIDR inhsol 07/25/17 [Rx] Nicotine Patch [Nicoderm] 14 mg TD DAILY patch.td24 07/25/17 [Rx] Thiamine (B-1) [Vitamin B-1] 100 mg PO DAILY tablet 07/25/17 [Rx] Vitamin B Complex/Vit C/Vit E [Stresstab] 1 each PO DAILY tablet 07/25/17 [Rx] DULoxetine [Cymbalta] 60 mg PO DAILY #14 capsule. 07/30/17 [Rx] Docusate [Colace] 100 mg PO BID capsule 07/30/17 [Rx] Gabapentin [Neurontin] 100 mg PO TID capsule 07/30/17 [Rx] Quetiapine Fumarate [Seroquel] 50 mg PO HS #14 tablet 07/30/17 [Rx] traZODone [TraZODone] 50 mg PO HS #7 tablet 07/30/17 [Rx] Allergies/Adverse Reactions: 3 Allergy/AdvReac Type Severity Reaction Status Date / Time some kind of depression Allergy Itching Uncoded 09/18/16 08:59 medication Certification: Further, I certify that my clinical findings support that this patient is homebound (i.e. absences from home require considerable and taxing effort and are for medical reasons or temple services or infrequently or short duration when for other reasons) because: Homebound Reason: Altered mental status requiring supervision when leaving home Attestation: My signature below is to certify that this patient is under my care and that I, or nurse practitioner, or a physician's therapy administrative assistant working with me, has a face-to -face encounter with this patient.
== END 2017-07-30 12:35 | disposition home health service (06) | DRG 897 ==
LOC: 1ANU 23:11
PROVIDERS: ADMIT Psychiatry & Neurology Psychiatry; ATTEND Psychiatry & Neurology Psychiatry

== ENCOUNTER 2018-06-16 19:08 | Inpatient (IN) ==
[2018-06-17] MEDS ORDERED: Ondansetron ODT 4 MG TAB.RAPDIS SL PRN (00:15)
[2018-06-17] MEDS ORDERED: Naloxone 0.4 MG/ML INJ IVP PRN (00:15)
[2018-06-17] MEDS: OXYCODONE Oral CONC 10 MG/0.5 ML ORAL.SYG SL PRN ×2 (00:31→05:26)
[2018-06-17] MEDS ORDERED: Ipratropium/Albuterol Neb 3 ML IH PRN (00:38)
[2018-06-17] MEDS ORDERED: *HR* LORazepam 2 MG/ML VIAL IVP PRN ×3 (00:42)
--- NOTE | 2018-06-17 00:57 | Internal Med History&Physical ---
Date of Encounter: 06/16/18 Time of Encounter: 23:50 Internal Medicine - H&P: HPI Chief complaint: acute diverticulitis Admitted From: Hospital to Hospital Transfer Plans for Post Hospital Care: Home History of present illness: Mr. Thakkar is a 58 year old male Patient presented to the [facility] at the behest of his primary care physician for concerning findings on his abdominal CT. He has been having a 1 week history of abdominal pain, initially started on oral cipro and flagyl, but his pain continued. He has never had pain like this in the past. Pain does not radiate, mainly on the left side more than the right. He has had some loose stools as well that he had described as black. His PCP oredered a CT scan to be done on the morning of his admission and it showed acute diverticulitis with a 2.0x1.7cm abscess. He was then transferred to [facility] for further management. He has a significant medical history of DVTs on chronic anticoagulation and has a IVC filter. He has been on coumadin up until recently when he was started on lovenox. He was to have a dental procedure performed, however due to his current medical state this has been rescheduled. He has significant alcohol and tobacco use as well. At the [facility] his stool was found to be occult blood negative, INR was 1.1. Upon my assessment patient states that he has left sided abdominal pain. No acute distress. Past Med Surg Social Fam HX - Past Medical History Medical history: DVT, GERD, hypertension Additional medical history: hemorrhoids Psychiatric history: depression - Past Surgical History Surgical History: appendectomy, herniorrhaphy, IVC Filter Additional surgical history: left shoulder rotator cuff repair, left bicep repair - Social History Smoking Status: Current every day smoker Packs per day: 1.5 Smokeless Tobacco Status: No Alcohol use: none Drug use: none - Family History Mother Hx Family Cardiac Disorders: Yes (DVT) Hx Family Endocrine Disorder: Yes (DM) Father Hx Family GI Disorders: Yes (colitis) Internal Medicine - H&P: Meds Lisinopril/Hydrochlorothiazide [Zestoretic 10-12.5 mg Tablet] 1 tab PO DAILY 11/03 [History] Omeprazole [PriLOSEC] 40 mg PO BID 09/18/16 [History] Tamsulosin [Flomax] 0.8 mg PO HS 09/18/16 [History] Acetaminophen with Codeine [Acetaminophen-Cod #4 Tablet] 1 tab PO Q6H PRN [History] Furosemide [Lasix] 40 mg PO DAILY 07/23/17 [History] Metoprolol Succinate 100 mg PO DAILY 07/23/17 [History] Potassium Chloride [Klor-Con Sprinkle] 8 meq PO DAILY 07/23/17 [History] Rosuvastatin Calcium 40 mg PO HS 07/23/17 [History] Folic Acid 1 mg PO DAILY tablet 07/25/17 [Rx] Ipratropium/Albuterol Neb [Duoneb] 3 ml IH QIDR inhsol 07/25/17 [Rx] Nicotine Patch [Nicoderm] 14 mg TD DAILY patch.td24 07/25/17 [Rx] Thiamine (B-1) [Vitamin B-1] 100 mg PO DAILY tablet 07/25/17 [Rx] Vitamin B Complex/Vit C/Vit E [Stresstab] 1 each PO DAILY tablet 07/25/17 [Rx] DULoxetine [Cymbalta] 60 mg PO DAILY #14 capsule. 07/30/17 [Rx] Docusate [Colace] 100 mg PO BID capsule 07/30/17 [Rx] Quetiapine Fumarate [Seroquel] 50 mg PO HS #14 tablet 07/30/17 [Rx] traZODone [TraZODone] 50 mg PO HS #7 tablet 07/30/17 [Rx] Ciprofloxacin HCl 500 mg PO BID 06/16/18 [History] Dicyclomine 20 mg PO QID 06/16/18 [History] Gabapentin [Neurontin] 300 mg PO TID 06/16/18 [History] Loperamide 2 mg PO QID 06/16/18 [History] MetroNIDAZOLE 500 mg PO TID 06/16/18 [History] Tizanidine HCl 4 mg PO TID PRN 06/16/18 [History] Warfarin Sodium 1 mg PO DAILY 06/16/18 [History] Warfarin Sodium 2 mg PO DAILY 06/16/18 [History] 3 Allergy/AdvReac Type Severity Reaction Status Date / Time some kind of depression Allergy Itching Uncoded 06/16/18 17:12 medication All Systems PM: A 10-system review of systems was performed and is negative for pertinent findings except as documented above in the HPI. - Constitutional Vitals: Temp Pulse Resp BP Pulse Ox 98.0 F 70 15 114/76 95 06/16/18 23:32 06/16/18 23:32 06/16/18 23:32 06/16/18 23:32 06/16/18 23:32 General appearance: Present: cooperative, A&O X 3, pleasant, no acute distress, obese, answers questions appropriately Exam: as above - Head Head exam: Present: normal inspection - Eye Eye exam: Present: EOMI, normal appearance - Respiratory Respiratory exam: Present: wheezes. Absent: chest wall tenderness, respiratory distress - Cardiovascular Cardiovascular exam: Present: RRR. Absent: diastolic murmur, systolic murmur - GI/Abdominal GI/Abdominal exam: Present: distended, normal bowel sounds, tenderness Additional comments: left lower quadrant pain - Extremities Exam Extremities exam: Present: warm, radial pulses palpable and symmetrical. Absent : calf tenderness, pedal edema, tenderness - Neurological Exam Neurological exam: Present: no focal deficits, strengths equal and symetr throughout. Absent: facial droop, speech deficit - Skin Skin exam: Present: dry, normal color, warm - Assessment and plan (1) Acute diverticulitis of intestine Current Visit: No Status: Acute Assessment and plan: As evidenced by abdominal CT, has 2.0cmx1.7cm abscess. Continue IV cipro and flagyl Blood cultures not obtained prior to starting antibiotics. Continue to monitor NPO for now IV pain medication as needed. (2) History of DVT (deep vein thrombosis) Current Visit: No Status: Chronic Assessment and plan: On lovenox injections for pending dental procedure. Will have to coordinate when this procedure will be performed in the future. Continue lovenox Occult blood negative, H/H stable. Continue to monitor. (3) Alcohol abuse Current Visit: No Status: Acute Assessment and plan: History of alcohol abuse, no tremors on exam. CIWA monitoring for signs of withdrawal. (4) Tobacco abuse Current Visit: No Status: Chronic Assessment and plan: Nicotine patch at patient's request. (5) HTN (hypertension) Current Visit: No Status: Chronic Assessment and plan: Well controlled. Holding oral meds as patient is NPO. Continue to monitor. Qualifiers: Hypertension type: essential hypertension Qualified Code(s): I10 - Essential (primary) hypertension (6) Obesity, Class III, BMI 40-49.9 (morbid obesity) Current Visit: Yes Status: Acute - Time Spent With Patient Total time spent is greater than 50% in coordination of care (as documented) at patient's floor/unit and/or counseling patient: Greater than 35 minutes
[2018-06-17] MEDS ORDERED: *HR* Enoxaparin 40 MG/0.4 ML SYRINGE SQ SCH (06:00)
[2018-06-17 06:14] LABS: Hematocrit 43.2 % (37.5-50.1); Hemoglobin 14.4 g/dL (12.9-16.9); Mean Corpuscular HGB Conc 33.3 g/dL (31.6-35.5); Mean Corpuscular Hemoglobin 29.8 pg (28.0-33.3); Mean Corpuscular Volume 89.4 fL (83.0-100.0); Mean Platelet Volume 9.6 fL (9.4-12.4); Platelet Count 259 K/mcL (140-400); Red Blood Count 4.83 M/mcL (4.19-5.50); Red Cell Distribution Width 14.7 % (11.5-14.5)
[2018-06-17 06:31] LABS: BUN/Creatinine Ratio 10 (6-26); Blood Urea Nitrogen 9 mg/dL (8-23); Calcium 8.8 mg/dL (8.6-10.3); Carbon Dioxide 27 mEq/L (23-29); Chloride 104 mEq/L (98-107); Glucose 105 mg/dL (70-105); Osmolality,Calculated 281 (280-300); Potassium 3.8 mEq/L (3.5-5.1); Sodium 136 mEq/L (136-145); eGFR For Non-African Americans > 60 (> 60)
[2018-06-17] MEDS: Nicotine 21 MG PATCH.TD24 TD SCH ×2 (07:49)
[2018-06-17] MEDS: MetroNIDAZOLE 500 MG/100 ML 500 MG/100 ML BAG IVPB SCH ×2 (07:49→16:05)
[2018-06-17] MEDS ORDERED: *HR* Enoxaparin 100 MG/ML SYRINGE SQ ONE (09:00)
[2018-06-17] MEDS ORDERED: tiZANidine 4 MG TABLET PO PRN (10:29)
--- NOTE | 2018-06-17 10:37 | Internal Med Progress Note ---
Hospitalist Progress Note - Encounter Date of Encounter: 06/17/18 Time of Encounter: 08:00 - Subjective Interval History: he report sthat he is feeling better, LLQ pain has improved. denies diarrhea, has not have a BM today, denies fever, chillls, N/v. is requesting to eat food if possible. no events over night deies CP, SOB, palpitations his last colonoscopy was around 10 years ago - cannot recall results his coumadin was stopped for dental procedure 5 days ago and he was started on lovenox but his dental procedure was cancelled - Exam Vitals: Temp Pulse Resp BP Pulse Ox 98.1 F 72 18 113/66 94 06/17/18 06:33 06/17/18 06:33 06/17/18 06:33 06/17/18 06:33 06/17/18 06:33 Exam: General: Patient is alert, oriented, no acute distress, morbidly obese Head: atraumatic, normocephalic, Eye: normal appearance, PERRL, no scleral icterus, no conjunctival injection ENT: mucous membranes moist, normal external ear exam Neck: normal inspection, trachea midline, full ROM, no carotid bruits Chest: normal inspection, symmetric chest rise Respiratory: decrease breath sounds due to body habitus, Good respiratory effort. Bilateral breath sounds are clear without wheezing, crackles, or rhonchi. Cardiovascular: decreased heart sounds secondary to body habitus, Regular rate and rhythm. s1 and s2 No clicks, rubs, gallops, or murmors. Abdomen: Bowel sounds present normoactive x-4 quadrants. Abdomen is soft, no Epigastric tenderness. No guarding or rebound. No organomegaly noted, obese, mild LLQ abdominal pain on deep palpation musculoskeletal: Spontaneously moving all extremities. no edema, no calf tenderness Skin: warm, dry, intact. Neuro: Alert and oriented x4. Sensation light touch intact. Cranial nerves 2- 12 is intact. Not aphasic, rapid hand movements intact, [id number] intact, Psych: Patient's affect is normal - Assessment and Plan (1) Acute diverticulitis of intestine Current Visit: Yes Status: Acute Assessment and Plan: Ct A/[facility]oman 06/16- 1. Acute sigmoid diverticulitis with a 2.0 x 1.7 cm intramural versus pericolonic abscess. No extraluminal gas. was started on ciprofloxacin adn flagyn IV with improvement of his symptoms last colonoscopy was >10 yeasr ago - cannot recall findings (2) Colonic diverticular abscess Current Visit: Yes Status: Acute Assessment and Plan: CT A/p on 06/16/18-showed 1. Acute sigmoid diverticulitis with a 2.0 x 1.7 cm intramural versus pericolonic abscess. No extraluminal gas. Abx as per above will consider Surgery consult if no clinical improvement with IV Abx as Abscess is <3Cm (3) Chronic deep vein thrombosis (DVT) Current Visit: Yes Status: Chronic Assessment and Plan: on therapuetic lovenox coumadin was held by PCP for dental procedure which is now cancelled will restart his coumadin if no procedures are planned for diverticular abscess. Pt/INr in the AM to have baseline before coumadin is reinitiated (4) Obesity, Class III, BMI 40-49.9 (morbid obesity) Current Visit: Yes Status: Acute Assessment and Plan: was counseled on nutrition will get nutrition consult (5) DVT prophylaxis Current Visit: Yes Status: Acute Assessment and Plan: on therapeutci lovenox for chronic DVT has IVC filter palced will consider bridging him to coumadin if no procedures are planned (6) Major depress dis, severe Current Visit: No Status: Acute Assessment and Plan: will continue home medications currently denies SI and HI (7) Tobacco dependence Current Visit: No Status: Acute Assessment and Plan: was counseled on tobacco cessation DVT Prophylaxis: on lovenox therapeutic dosage - Time Spent with Patient Total time spent is greater than 50% in coordination of care (as documented) at patient's floor/unit and/or counseling patient: Plan of Care Discussed with: patient Internal Medicine: Result - Labs CBC & Chem 7: 06/17/18 05:41 06/17/18 05:41 Labs: Short CBC 06/17/18 Range/Units 05:41 WBC 9.7 (4.3-11.1) K/mcL Hgb 14.4 (12.9-16.9) g/dL Hct 43.2 (37.5-50.1) % Plt Count 259 (140-400) K/mcL BMP 06/17/18 05:41 Sodium 136 Potassium 3.8 Chloride 104 Carbon Dioxide 27 BUN 9 Creatinine 0.94 Glucose 105 Calcium 8.8 Consult Discharge Plan - Plan Referrals: John,Michael W, JOSEFINA [Primary Care Provider] -
[2018-06-17] MEDS: Metoprolol XL (24 HR) Succ 50 MG TAB.ER.24H PO SCH (12:55)
[2018-06-17] MEDS: Gabapentin 300 MG CAPSULE PO SCH ×2 (13:50→20:37)
[2018-06-17] MEDS ORDERED: *HR* LORazepam 1 MG TABLET PO SCH (15:00)
[2018-06-17] MEDS: *HR* LORazepam 0.5 MG TABLET PO PRN (16:05)
[2018-06-17] MEDS: *HR* Enoxaparin 150 MG/ML SYRINGE SQ SCH (16:59)
[2018-06-17] MEDS: traZODone 50 MG TABLET PO SCH (20:38)
[2018-06-18] MEDS: MetroNIDAZOLE 500 MG/100 ML 500 MG/100 ML BAG IVPB SCH ×3 (01:20→19:53)
[2018-06-18 05:25] LABS: Hematocrit 40.9 % (37.5-50.1); Hemoglobin 13.5 g/dL (12.9-16.9); Mean Corpuscular Hemoglobin 29.2 pg (28.0-33.3); Mean Corpuscular Volume 88.5 fL (83.0-100.0); Mean Platelet Volume 9.7 fL (9.4-12.4); Platelet Count 267 K/mcL (140-400); Red Blood Count 4.62 M/mcL (4.19-5.50)
[2018-06-18 05:30] LABS: INR 1.1; Prothrombin Time 12.5 Seconds (9.4-12.1)
[2018-06-18 05:48] LABS: BUN/Creatinine Ratio 11 (6-26); Blood Urea Nitrogen 8 mg/dL (8-23); Calcium 8.8 mg/dL (8.6-10.3); Carbon Dioxide 29 mEq/L (23-29); Chloride 103 mEq/L (98-107); Glucose 94 mg/dL (70-105); Osmolality,Calculated 282 (280-300); Potassium 3.7 mEq/L (3.5-5.1); Sodium 137 mEq/L (136-145); eGFR For Non-African Americans > 60 (> 60)
[2018-06-18] MEDS: *HR* Enoxaparin 150 MG/ML SYRINGE SQ SCH ×2 (06:43→19:52)
[2018-06-18] MEDS: Metoprolol XL (24 HR) Succ 50 MG TAB.ER.24H PO SCH (09:12)
[2018-06-18] MEDS: Nicotine 21 MG PATCH.TD24 TD SCH (09:13)
[2018-06-18] MEDS: Furosemide 40 MG TABLET PO SCH (09:13)
[2018-06-18] MEDS: Gabapentin 300 MG CAPSULE PO SCH ×3 (09:13→20:19)
--- NOTE | 2018-06-18 11:49 | Internal Med Progress Note ---
Hospitalist Progress Note - Encounter Date of Encounter: 06/18/18 Time of Encounter: 08:00 - Subjective Interval History: he reports that he is feeling better, LLQ pain has . denies diarrhea, denies fever, chillls, N/v. is tolerating PO diet no events over night denies CP, SOB, palpitations, melena, hematochezia, hematemesis. - Exam Vitals: Temp Pulse Resp BP Pulse Ox 97.8 F 87 16 107/71 96 06/18/18 10:04 06/18/18 10:04 06/18/18 10:06/18/18 10:06/18/18 10:04 Exam: General: Patient is alert, oriented, no acute distress, morbidly obese Head: atraumatic, normocephalic, Eye: normal appearance, PERRL, no scleral icterus, no conjunctival injection ENT: mucous membranes moist, normal external ear exam Neck: normal inspection, trachea midline, full ROM, no carotid bruits Chest: normal inspection, symmetric chest rise Respiratory: decrease breath sounds due to body habitus, Good respiratory effort. Bilateral breath sounds are clear without wheezing, crackles, or rhonchi. Cardiovascular: decreased heart sounds secondary to body habitus, Regular rate and rhythm. s1 and s2 No clicks, rubs, gallops, or murmors. Abdomen: Bowel sounds present normoactive x-4 quadrants. Abdomen is soft, no Epigastric tenderness. No guarding or rebound. No organomegaly noted, obese, mild LLQ abdominal pain on deep palpation musculoskeletal: Spontaneously moving all extremities. no edema, no calf tenderness Skin: warm, dry, intact. Neuro: Alert and oriented x4. Sensation light touch intact. Cranial nerves 2- 12 is intact. Not aphasic, rapid hand movements intact, [id number] intact, Psych: Patient's affect is normal - Assessment and Plan (1) Acute diverticulitis of intestine Current Visit: Yes Status: Acute Assessment and Plan: Ct A/[facility] 06/16- 1. Acute sigmoid diverticulitis with a 2.0 x 1.7 cm intramural versus pericolonic abscess. No extraluminal gas. was started on ciprofloxacin and flagyl IV with improvement of his symptoms last colonoscopy was >10 yeasr ago - cannot recall findings surgery consulted- will follow recommendations (2) Colonic diverticular abscess Current Visit: Yes Status: Acute Assessment and Plan: CT A/p on 06/16/18-showed 1. Acute sigmoid diverticulitis with a 2.0 x 1.7 cm intramural versus pericolonic abscess. No extraluminal gas. Abx as per above surgery was consulted will follow recommendations will repeat CT Abdomen adn pelvis after 72 hrs of IV Abx to reassess the asbcess size if no surgical intervention (3) Chronic deep vein thrombosis (DVT) Current Visit: Yes Status: Chronic Assessment and Plan: on therapuetic lovenox coumadin was held by PCP for dental procedure which is now cancelled will restart his coumadin if no procedures are planned for diverticular abscess. (4) Obesity, Class III, BMI 40-49.9 (morbid obesity) Current Visit: Yes Status: Acute Assessment and Plan: was counseled on nutrition will get nutrition consult (5) DVT prophylaxis Current Visit: Yes Status: Acute Assessment and Plan: on therapeutci lovenox for chronic DVT has IVC filter palced will consider bridging him to coumadin if no procedures are planned (6) Major depress dis, severe Current Visit: No Status: Acute (7) Tobacco dependence Current Visit: No Status: Acute Assessment and Plan: was counseled on tobacco cessation - Time Spent with Patient Total time spent is greater than 50% in coordination of care (as documented) at patient's floor/unit and/or counseling patient: Internal Medicine: Result - Labs CBC & Chem 7: 06/18/18 04:53 06/18/18 04:53 Labs: Short CBC 06/18/18 Range/Units 04:53 WBC 9.7 (4.3-11.1) K/mcL Hgb 13.5 (12.9-16.9) g/dL Hct 40.9 (37.5-50.1) % Plt Count 267 (140-400) K/mcL BMP 06/18/18 04:53 Sodium 137 Potassium 3.7 Chloride 103 Carbon Dioxide 29 BUN 8 Creatinine 0.76 Glucose 94 Calcium 8.8 - ABG Interpretation ABG results: PT/INR, D-dimer PT 12.5 Seconds (9.4-12.1) H 06/18/18 04:53 Consult Discharge Plan - Plan Referrals: Michael Lopez, TEST BAKER [Primary Care Provider] -
--- NOTE | 2018-06-18 13:05 | General Surgery Consult Note ---
<Malu Byrnes - Last Filed: 06/18/18 13:33> Date of Encounter: 06/18/18 Time of Encounter: 13:05 Assessment and Plan (1) Acute diverticulitis of intestine Current Visit: Yes Status: Acute 1st episode of acute diverticulitis. He continues to have abdominal discomfort and involuntary guarding. Recommend continue IV antibiotics, clear liquid diet , and bowel rest. Do not advance diet until he is pain free. He will need surgical follow-up in approximately 4 to 6 weeks for outpatient colonoscopy. He will follow a low fiber diet at discharge until seen and follow -up. Nutritional consult has been placed for a low fiber diet. There is no acute surgical intervention indicated at this time. (2) History of DVT (deep vein thrombosis) Current Visit: No Status: Chronic per primary team (3) Obesity, Class III, BMI 40-49.9 (morbid obesity) Current Visit: Yes Status: Acute Per primary team History of Present Illness Consult date: 06/18/18 (Dr. Stu Alvarado) Reason for consult: other (Diverticulitis) Requesting physician: Ioana Maria History of present illness: Scout is a 58-year-old male with significant past medical history ( reviewed in [employer]), who presented on 06/17/2018 with complaints of left lower quadrant pain and diarrhea. He was noted to have accused sigmoid diverticulitis with a 2.0 x 1.7 abscess. He reports his is his 1st episode of diverticulitis. He states his abdominal discomfort began abruptly on in the left lower quadrant, felt sharp and stabbing, cramping, 8 out of 10, no aggravating or alleviating factors, associated with multiple episodes of watery diarrhea. He denies a history of changes in bowel habits, constipation, or diarrhea. He denies urinary signs or symptoms. He denies fever, chills, nausea, vomiting. He states his discomfort has improved since the initiation of antibiotic therapy and is currently 5 to 6 out of 10. He is tolerating clear liquids without increase in discomfort. He states he completed a colonoscopy approximately 10 years ago at [facility]. He reports the results as normal. He is on chronic or friend anticoagulation for a history of the DVT. Surgery has been asked to evaluate this patient for recommendations regarding diverticulitis. Past Med Surg Social Fam HX - Past Medical History Source: patient, old records reviewed Medical history: DVT, GERD, hypertension Additional medical history: hemorrhoids Psychiatric history: depression - Past Surgical History Surgical History: appendectomy, herniorrhaphy, IVC Filter Additional surgical history: left shoulder rotator cuff repair, left bicep repair - Social History Smoking Status: Current every day smoker Packs per day: 1.5 Smokeless Tobacco Status: No Alcohol use: none Drug use: none Occupational status: employed Current living situation: Home - Independent Activity Level: Independent ambulation - Family History Mother Hx Family Cardiac Disorders: Yes (DVT) Hx Family Endocrine Disorder: Yes (DM) Father Hx Family GI Disorders: Yes (colitis) Medications and Allergies Warfarin Sodium 3 mg PO Q48H 06/16/18 [History] Warfarin Sodium 3.5 mg PO Q48H 06/16/18 [History] Amoxicillin 500 mg PO AD 06/17/18 [History] Ciprofloxacin [Cipro] 500 mg PO BID 06/17/18 [History] Dicyclomine [Bentyl] 20 mg PO QID 06/17/18 [History] Duloxetine HCl [Cymbalta] 60 mg PO DAILY 06/17/18 [History] Enoxaparin [Lovenox] 120 mg SQ Q12HR 06/17/18 [History] Furosemide [Lasix] 40 mg PO DAILY 06/17/18 [History] Gabapentin [Neurontin] 300 mg PO TID 06/17/18 [History] LORazepam [Ativan] 1 mg PO TID 06/17/18 [History] Lisinopril/Hydrochlorothiazide [Zestoretic 10-12.5 mg Tablet] 1 tab PO DAILY [History] Metoprolol Succinate [Toprol Xl] 100 mg PO DAILY 06/17/18 [History] Omeprazole [PriLOSEC] 40 mg PO BID 06/17/18 [History] Potassium Chloride [K-Tab ER] 8 meq PO DAILY 06/17/18 [History] Quetiapine Fumarate [Seroquel] 50 mg PO HS 06/17/18 [History] Rosuvastatin [Crestor] 40 mg PO HS 06/17/18 [History] Tamsulosin [Flomax] 0.4 mg PO DAILY 06/17/18 [History] Tizanidine HCl 4 mg PO TID PRN 06/17/18 [History] Trazodone HCl 50 mg PO HS 06/17/18 [History] metroNIDAZOLE [Metronidazole] 500 mg PO TID 06/17/18 [History] 3 Allergy/AdvReac Type Severity Reaction Status Date / Time some kind of depression Allergy Itching Uncoded 06/16/18 17:12 medication Review of Systems All systems PM: reviewed and no additional remarkable complaints except as stated All systems PM: The remainder of the systems were reviewed and are negative General Surgery Exam Initial Vital Signs Temp Pulse Resp BP Pulse Ox 99.5 F 95 16 118/75 93 06/16/18 21:58 06/16/18 21:58 06/16/18 21:58 06/16/18 21:58 06/16/18 21:58 VITAL SIGNS: Reviewed. See [facility] GENERAL: In no apparent distress. HEENT: Normocephalic, atraumatic, pupils are equal and reactive, extraocular motions intact, oropharynx is pink and moist, there is no neck adenopathy or JVD noted. CHEST/RESPIRATORY: The thorax is free from signs of trauma. Lung sounds: clear to auscultation, normal respiratory effort CARDIAC: Regular rate and rhythm. Normal S1 and S2, without murmurs, gallops, or rubs. VASCULAR: No Edema. 2+ peripheral pulses. ABDOMEN: soft, involuntary guarding, tenderness to palpation in the left and right lower quadrant, active bowel sounds. MUSCULOSKELETAL: Good range of motion of all major joints. Extremities without clubbing, cyanosis or edema. NEUROLOGIC EXAM: Alert and oriented x 3. Speech normal. Follows commands. PSYCHIATRIC: Mood normal. SKIN: Brawny lower extremities. Exam Initial Vital Signs Temp Pulse Resp BP Pulse Ox 99.5 F 95 16 118/75 93 06/16/18 21:58 06/16/18 21:58 06/16/18 21:58 06/16/18 21:58 06/16/18 21:58 Results - Labs 06/18/18 04:53 06/18/18 04:53 Abnormal lab results RDW 15.0 % (11.5-14.5) H 06/18/18 04:53 PT 12.5 Seconds (9.4-12.1) H 06/18/18 04:53 POC Glucose 123 mg/dL (70-99) H 06/17/18 10:51 Diabetes panel 06/18/18 Range/Units 04:53 Sodium 137 (136-145) mEq/L Potassium 3.7 (3.5-5.1) mEq/L Chloride 103 (98-107) mEq/L Carbon Dioxide 29 (23-29) mEq/L BUN 8 (8-23) mg/dL Creatinine 0.76 (0.70-1.30) mg/dL Glucose 94 (70-105) mg/dL Calcium 8.8 (8.6-10.3) mg/dL Calcium panel 06/18/18 Range/Units 04:53 Calcium 8.8 (8.6-10.3) mg/dL Pituitary panel 06/18/18 Range/Units 04:53 Sodium 137 (136-145) mEq/L Potassium 3.7 (3.5-5.1) mEq/L Chloride 103 (98-107) mEq/L Carbon Dioxide 29 (23-29) mEq/L BUN 8 (8-23) mg/dL Creatinine 0.76 (0.70-1.30) mg/dL Glucose 94 (70-105) mg/dL Calcium 8.8 (8.6-10.3) mg/dL Adrenal panel 06/18/18 Range/Units 04:53 Sodium 137 (136-145) mEq/L Potassium 3.7 (3.5-5.1) mEq/L Chloride 103 (98-107) mEq/L Carbon Dioxide 29 (23-29) mEq/L BUN 8 (8-23) mg/dL Creatinine 0.76 (0.70-1.30) mg/dL Glucose 94 (70-105) mg/dL Calcium 8.8 (8.6-10.3) mg/dL All other labs normal. - Imaging CT scan - abdomen: report reviewed CT scan - pelvis: report reviewed Consult Discharge Plan - Plan Referrals: Michael Lopez, SUPPORT MERCHANDISER [Primary Care Provider] - <Stu Alvarado - Last Filed: 06/18/18 18:46> Date of Encounter: 06/18/18 Assessment and Plan (1) History of DVT (deep vein thrombosis) Current Visit: No Status: Chronic (2) Acute diverticulitis of intestine Current Visit: Yes Status: Acute (3) Obesity, Class III, BMI 40-49.9 (morbid obesity) Current Visit: Yes Status: Acute Review of Systems All systems PM: The remainder of the systems were reviewed and are negative General Surgery Exam Initial Vital Signs Temp Pulse Resp BP Pulse Ox 99.5 F 95 16 118/75 93 06/16/18 21:58 06/16/18 21:58 06/16/18 21:58 06/16/18 21:58 06/16/18 21:58 Exam Initial Vital Signs Temp Pulse Resp BP Pulse Ox 99.5 F 95 16 118/75 93 06/16/18 21:58 06/16/18 21:58 06/16/18 21:58 06/16/18 21:58 06/16/18 21:58 Results - Labs 06/18/18 04:53 06/18/18 04:53 Abnormal lab results RDW 15.0 % (11.5-14.5) H 06/18/18 04:53 PT 12.5 Seconds (9.4-12.1) H 06/18/18 04:53 POC Glucose 123 mg/dL (70-99) H 06/17/18 10:51 Diabetes panel 06/18/18 Range/Units 04:53 Sodium 137 (136-145) mEq/L Potassium 3.7 (3.5-5.1) mEq/L Chloride 103 (98-107) mEq/L Carbon Dioxide 29 (23-29) mEq/L BUN 8 (8-23) mg/dL Creatinine 0.76 (0.70-1.30) mg/dL Glucose 94 (70-105) mg/dL Calcium 8.8 (8.6-10.3) mg/dL Calcium panel 06/18/18 Range/Units 04:53 Calcium 8.8 (8.6-10.3) mg/dL Pituitary panel 06/18/18 Range/Units 04:53 Sodium 137 (136-145) mEq/L Potassium 3.7 (3.5-5.1) mEq/L Chloride 103 (98-107) mEq/L Carbon Dioxide 29 (23-29) mEq/L BUN 8 (8-23) mg/dL Creatinine 0.76 (0.70-1.30) mg/dL Glucose 94 (70-105) mg/dL Calcium 8.8 (8.6-10.3) mg/dL Adrenal panel 06/18/18 Range/Units 04:53 Sodium 137 (136-145) mEq/L Potassium 3.7 (3.5-5.1) mEq/L Chloride 103 (98-107) mEq/L Carbon Dioxide 29 (23-29) mEq/L BUN 8 (8-23) mg/dL Creatinine 0.76 (0.70-1.30) mg/dL Glucose 94 (70-105) mg/dL Calcium 8.8 (8.6-10.3) mg/dL All other labs normal. - Attending Attestation I examined this patient and my medical decision-making was reviewed with the Resident Physician. I agree with the documented findings, disposition and treatment plan as described except to the extent set forth below. The patient is seen and evaluated on rounds with resident in the clinical nurse practitioner. He does have a tender left lower quadrant. We will plan on bowel rest today with clear liquids. We will continue IV antibiotics. He reports that his pain is improved. I personally reviewed the CAT scan films and agree with the diagnosis of intramural abscess. Stu Alvarado MD FACS
[2018-06-18] MEDS ORDERED: *HR* Warfarin 5 MG TABLET PO ONE (18:00)
[2018-06-18] MEDS ORDERED: Warfarin perPT PO PRN (18:00)
[2018-06-18] MEDS: Acetaminophen IV 1,000 MG/100 ML INFUS..BTL IVPB SCH ×2 (19:57→20:35)
[2018-06-18] MEDS: traZODone 50 MG TABLET PO SCH (20:34)
[2018-06-18] MEDS: *HR* LORazepam 0.5 MG TABLET PO PRN (20:34)
[2018-06-19] MEDS: MetroNIDAZOLE 500 MG/100 ML 500 MG/100 ML BAG IVPB SCH ×4 (00:24→16:24)
[2018-06-19] MEDS: Acetaminophen IV 1,000 MG/100 ML INFUS..BTL IVPB SCH (03:25)
[2018-06-19 06:02] LABS: Hematocrit 44.4 % (37.5-50.1); Hemoglobin 14.4 g/dL (12.9-16.9); Mean Corpuscular HGB Conc 32.4 g/dL (31.6-35.5); Mean Corpuscular Volume 89.3 fL (83.0-100.0); Mean Platelet Volume 9.7 fL (9.4-12.4); Platelet Count 272 K/mcL (140-400); Red Blood Count 4.97 M/mcL (4.19-5.50); Red Cell Distribution Width 14.6 % (11.5-14.5)
[2018-06-19 06:05] LABS: INR 1.2; Prothrombin Time 13.2 Seconds (9.4-12.1)
[2018-06-19] MEDS: *HR* Enoxaparin 150 MG/ML SYRINGE SQ SCH ×2 (06:16→17:59)
[2018-06-19 06:27] LABS: BUN/Creatinine Ratio 7 (6-26); Blood Urea Nitrogen 6 mg/dL (8-23); Calcium 8.8 mg/dL (8.6-10.3); Carbon Dioxide 28 mEq/L (23-29); Chloride 104 mEq/L (98-107); Glucose 99 mg/dL (70-105); Osmolality,Calculated 282 (280-300); Potassium 3.8 mEq/L (3.5-5.1); Sodium 137 mEq/L (136-145); eGFR For Non-African Americans > 60 (> 60)
[2018-06-19] MEDS: Furosemide 40 MG TABLET PO SCH (09:56)
[2018-06-19] MEDS: Gabapentin 300 MG CAPSULE PO SCH ×3 (09:57→21:07)
[2018-06-19] MEDS: Metoprolol XL (24 HR) Succ 50 MG TAB.ER.24H PO SCH (09:57)
[2018-06-19] MEDS: Nicotine 21 MG PATCH.TD24 TD SCH (09:58)
[2018-06-19] MEDS: *HR* LORazepam 0.5 MG TABLET PO PRN (10:07)
--- NOTE | 2018-06-19 10:39 | General Surgery Progress Note ---
<Cheo Judd R - Last Filed: 06/19/18 15:16> Date of Encounter: 06/19/18 Time of Encounter: 08:10 - Assessment and Plan (1) Acute diverticulitis of intestine Current Visit: Yes Status: Acute Patient is improving with less pain and increasing diet tolerance. Surgery will sign off at this time Plan: Continue antibiotics - Cipro and Flagyl for 7 days Recommend bulking plant fiber such as Psyllium or Metamucil Follow up with Dr. Alvarado as outpatient in 2 weeks Will need colonscopy in 6-8 weeks Subjective Patient reports: feels better, pain is less, tolerating liquids well, voiding w/ o difficulty, flatus, afebrile Narrative: Patient reports improvement in symptoms. Mild abdominal pain today, less than yesterday. Denies nausea, vomiting, diarrhea, or fever. Patient has been tolerating clear liquid diet well, patient states that he is hungry. Patient is ambulating well without assistance. Objective Vital Signs - Last 8 Hours Temp Pulse Resp BP Pulse Ox 06/19/18 10:11 98.1 F 78 18 109/67 93 06/19/18 06:42 97.8 F 74 16 98/63 98 06/19/18 03:56 97.9 F 75 16 121/72 96 Intake and Output 06/18/18 06/19/18 06/19/18 23:59 07:59 15:59 Intake Total 1240 / 1240 300 / 300 950 / 950 Output Total 675 / 675 625 / 625 0 / 0 Balance 565 / 565 -325 / -325 950 / 950 Intake: IV Fluids 400 / 400 300 / 300 Ofirmev 1,000 mg/100 ml 1,000 100 / 100 mg In 100 ml @ 400 mls/hr IVPB Q6H SUJIT Rx#:[id number] Cipro Premix 400 MG/200 ML 400 200 / 200 200 / 200 mg In 200 ml @ 200 mls/hr IVPB Q12HR SUJIT Rx#:[id number] Flagyl Premix 500 MG/100 ML 500 100 / 100 100 / 100 mg In 100 ml @ 100 mls/hr IVPB Q8H SUJIT Rx#:[id number] Oral 840 / 840 0 / 0 950 / 950 Output: Urine 675 / 675 625 / 625 0 / 0 Other: Meal Dinner Clears Breakfast Percent of Meal Consumed 100% Weight 133.8 kg Patient Weight 06/19/18 23:59 Weight 133.8 kg - General physical appearance well developed, no distress, no pain - Eyes PERRL, normal ocular movement - ENT atraumatic, normocephalic - Neck Neck exam: trachea midline - Respiratory normal expansion, clear to auscultation - Cardiovascular Cardiovascular exam: Present: RRR - Abdomen Abdomen: Present: bowel sounds present, soft, tender (mild tenderness to deep palpation of LLQ). Absent: guarding, rebound - Integumentary no rash - Neurologic CN 2-12 grossly intact - Psychiatric oriented to time, oriented to person, oriented to place, speech is normal - Labs 06/19/18 05:30 06/19/18 05:30 Diabetes panel 06/19/18 Range/Units 05:30 Sodium 137 (136-145) mEq/L Potassium 3.8 (3.5-5.1) mEq/L Chloride 104 (98-107) mEq/L Carbon Dioxide 28 (23-29) mEq/L BUN 6 L (8-23) mg/dL Creatinine 0.86 (0.70-1.30) mg/dL Glucose 99 (70-105) mg/dL Calcium 8.8 (8.6-10.3) mg/dL Calcium panel 06/19/18 Range/Units 05:30 Calcium 8.8 (8.6-10.3) mg/dL Pituitary panel 06/19/18 Range/Units 05:30 Sodium 137 (136-145) mEq/L Potassium 3.8 (3.5-5.1) mEq/L Chloride 104 (98-107) mEq/L Carbon Dioxide 28 (23-29) mEq/L BUN 6 L (8-23) mg/dL Creatinine 0.86 (0.70-1.30) mg/dL Glucose 99 (70-105) mg/dL Calcium 8.8 (8.6-10.3) mg/dL Adrenal panel 06/19/18 Range/Units 05:30 Sodium 137 (136-145) mEq/L Potassium 3.8 (3.5-5.1) mEq/L Chloride 104 (98-107) mEq/L Carbon Dioxide 28 (23-29) mEq/L BUN 6 L (8-23) mg/dL Creatinine 0.86 (0.70-1.30) mg/dL Glucose 99 (70-105) mg/dL Calcium 8.8 (8.6-10.3) mg/dL Consult Discharge Plan - Plan Referrals: Michael Lopze CNP [Primary Care Provider] - Stu Alvarado MD [Partnered Physician] - Prescriptions: Ciprofloxacin [Cipro] 500 mg PO BID #14 tablet metroNIDAZOLE [Metronidazole] 500 mg PO TID #21 tablet <Stu Alvarado - Last Filed: 06/19/18 15:54> Date of Encounter: 06/19/18 - Assessment and Plan (1) History of DVT (deep vein thrombosis) Current Visit: No Status: Chronic (2) Acute diverticulitis of intestine Current Visit: Yes Status: Acute (3) Obesity, Class III, BMI 40-49.9 (morbid obesity) Current Visit: Yes Status: Acute Objective Vital Signs - Last 8 Hours Temp Pulse Resp BP Pulse Ox 06/19/18 15:25 97.9 F 77 18 102/63 95 06/19/18 10:11 98.1 F 78 18 109/67 93 Intake and Output 06/18/18 06/19/18 06/19/18 23:59 07:59 15:59 Intake Total 1240 / 1240 300 / 300 1770 / 1770 Output Total 675 / 675 625 / 625 600 / 600 Balance 565 / 565 -325 / -325 1170 / 1170 Intake: IV Fluids 400 / 400 300 / 300 100 / 100 Ofirmev 1,000 mg/100 ml 1,000 100 / 100 mg In 100 ml @ 400 mls/hr IVPB Q6H SUJIT Rx#:[id number] Cipro Premix 400 MG/200 ML 400 200 / 200 200 / 200 mg In 200 ml @ 200 mls/hr IVPB Q12HR SUJIT Rx#:[id number] Flagyl Premix 500 MG/100 ML 500 100 / 100 100 / 100 100 / 100 mg In 100 ml @ 100 mls/hr IVPB Q8H SUJIT Rx#:[id number] Oral 840 / 840 0 / 0 1670 / 1670 Output: Urine 675 / 675 625 / 625 600 / 600 Other: Meal Dinner Clears Lunch Percent of Meal Consumed 100% Stool Size Moderate Stool Consistency liquid # Bowel Movements 2 Weight 133.8 kg Patient Weight 09/01/18 23:59 Weight 133.8 kg - Labs 06/19/18 05:30 06/19/18 05:30 Diabetes panel 06/19/18 Range/Units 05:30 Sodium 137 (136-145) mEq/L Potassium 3.8 (3.5-5.1) mEq/L Chloride 104 (98-107) mEq/L Carbon Dioxide 28 (23-29) mEq/L BUN 6 L (8-23) mg/dL Creatinine 0.86 (0.70-1.30) mg/dL Glucose 99 (70-105) mg/dL Calcium 8.8 (8.6-10.3) mg/dL Calcium panel 06/19/18 Range/Units 05:30 Calcium 8.8 (8.6-10.3) mg/dL Pituitary panel 06/19/18 Range/Units 05:30 Sodium 137 (136-145) mEq/L Potassium 3.8 (3.5-5.1) mEq/L Chloride 104 (98-107) mEq/L Carbon Dioxide 28 (23-29) mEq/L BUN 6 L (8-23) mg/dL Creatinine 0.86 (0.70-1.30) mg/dL Glucose 99 (70-105) mg/dL Calcium 8.8 (8.6-10.3) mg/dL Adrenal panel 06/19/18 Range/Units 05:30 Sodium 137 (136-145) mEq/L Potassium 3.8 (3.5-5.1) mEq/L Chloride 104 (98-107) mEq/L Carbon Dioxide 28 (23-29) mEq/L BUN 6 L (8-23) mg/dL Creatinine 0.86 (0.70-1.30) mg/dL Glucose 99 (70-105) mg/dL Calcium 8.8 (8.6-10.3) mg/dL - Attending Attestation I examined this patient and my medical decision-making was reviewed with the Resident Physician. I agree with the documented findings, disposition and treatment plan as described except to the extent set forth below. The patient is seen and evaluated with resident on morning rounds. His pain is much improved and we should be able to transition him to oral antibiotics prior to discharge. I would recommend follow-up as an outpatient to arrange for convalescent colonoscopy and discuss long-term care of diverticular disease Stu Alvarado MD FACS
--- NOTE | 2018-06-19 11:30 | Internal Med Progress Note ---
Hospitalist Progress Note - Encounter Date of Encounter: 06/19/18 Time of Encounter: 08:30 - Subjective Interval History: he reports that he is feeling better, denies diarrhea, denies fever, chillls, N/ v. is tolerating PO diet no events over night denies CP, SOB, palpitations, melena, hematochezia, hematemesis. - Exam Vitals: Temp Pulse Resp BP Pulse Ox 98.1 F 78 18 109/67 93 06/19/18 10:11 06/19/18 10:11 06/19/18 10:11 06/19/18 10:11 06/19/18 10:11 Exam: General: Patient is alert, oriented, no acute distress, morbidly obese Head: atraumatic, normocephalic, Eye: normal appearance, PERRL, no scleral icterus, no conjunctival injection ENT: mucous membranes moist, normal external ear exam Neck: normal inspection, trachea midline, full ROM, no carotid bruits Chest: normal inspection, symmetric chest rise Respiratory: decrease breath sounds due to body habitus, Good respiratory effort. Bilateral breath sounds are clear without wheezing, crackles, or rhonchi. Cardiovascular: decreased heart sounds secondary to body habitus, Regular rate and rhythm. s1 and s2 No clicks, rubs, gallops, or murmors. Abdomen: Bowel sounds present normoactive x-4 quadrants. Abdomen is soft, no Epigastric tenderness. No guarding or rebound. No organomegaly noted, obese, musculoskeletal: Spontaneously moving all extremities. no edema, no calf tenderness Skin: warm, dry, intact. Neuro: Alert and oriented x4. Sensation light touch intact. Cranial nerves 2- 12 is intact. Not aphasic, rapid hand movements intact, [id number] intact, Psych: Patient's affect is normal - Assessment and Plan (1) Acute diverticulitis of intestine Current Visit: Yes Status: Acute Assessment and Plan: Ct A/P on 06/16- . Acute sigmoid diverticulitis with a 2.0 x 1.7 cm intramural versus pericolonic abscess. No extraluminal gas. on ciprofloxacin and flagyl IV with improvement of his symptoms last colonoscopy was >10 years ago - cannot recall findings surgery recs appreciated started on psyllium (2) Colonic diverticular abscess Current Visit: Yes Status: Acute Assessment and Plan: CT A/p on 06/16/18-showed 1. Acute sigmoid diverticulitis with a 2.0 x 1.7 cm intramural versus pericolonic abscess. No extraluminal gas. Abx as per above surgery was consulted ad recommendations appreciated Follow up with Dr. Alvarado as outpatient in 2 weeks Will need colonscopy in 6-8 weeks (3) Chronic deep vein thrombosis (DVT) Current Visit: Yes Status: Chronic Assessment and Plan: on therapuetic lovenox coumadin was held by PCP for dental procedure which is now cancelled coumadin restarted will follow INR (4) Obesity, Class III, BMI 40-49.9 (morbid obesity) Current Visit: Yes Status: Acute Assessment and Plan: was counseled on nutrition will get nutrition consult (5) DVT prophylaxis Current Visit: Yes Status: Acute Assessment and Plan: on therapeutic lovenox for chronic DVT has IVC filter placed coumadin restarted follow INR (6) Major depress dis, severe Current Visit: No Status: Acute Assessment and Plan: will continue home medications currently denies SI and HI (7) Tobacco dependence Current Visit: No Status: Acute Assessment and Plan: was counseled on tobacco cessation - Time Spent with Patient Total time spent is greater than 50% in coordination of care (as documented) at patient's floor/unit and/or counseling patient: Internal Medicine: Result - Labs CBC & Chem 7: 06/19/18 05:30 06/19/18 05:30 Labs: Short CBC 06/19/18 Range/Units 05:30 WBC 8.1 (4.3-11.1) K/mcL Hgb 14.4 (12.9-16.9) g/dL Hct 44.4 (37.5-50.1) % Plt Count 272 (140-400) K/mcL BMP 06/19/18 05:30 Sodium 137 Potassium 3.8 Chloride 104 Carbon Dioxide 28 BUN 6 L Creatinine 0.86 Glucose 99 Calcium 8.8 - ABG Interpretation ABG results: PT/INR, D-dimer PT 13.2 Seconds (9.4-12.1) H 06/19/18 05:30 Consult Discharge Plan - Plan Referrals: tSu Alvarado MD [Partnered Physician] - Michael Lopez CNP [Primary Care Provider] - Prescriptions: Ciprofloxacin [Cipro] 500 mg PO BID #14 tablet metroNIDAZOLE [Metronidazole] 500 mg PO TID #21 tablet
[2018-06-19] MEDS: Psyllium 1 PACKET POWD.PACK PO SCH ×2 (14:30→21:07)
[2018-06-19] MEDS ORDERED: *HR* Warfarin 5 MG TABLET PO ONE (18:00)
[2018-06-19] MEDS: traZODone 50 MG TABLET PO SCH (21:07)
[2018-06-20] MEDS: MetroNIDAZOLE 500 MG/100 ML 500 MG/100 ML BAG IVPB SCH ×3 (00:58→17:00)
[2018-06-20] MEDS: *HR* Enoxaparin 150 MG/ML SYRINGE SQ SCH ×2 (05:38→17:08)
[2018-06-20 06:45] LABS: Hemoglobin 13.7 g/dL (12.9-16.9); Mean Corpuscular HGB Conc 32.6 g/dL (31.6-35.5); Mean Corpuscular Hemoglobin 28.9 pg (28.0-33.3); Mean Corpuscular Volume 88.6 fL (83.0-100.0); Mean Platelet Volume 9.8 fL (9.4-12.4); Platelet Count 267 K/mcL (140-400); Red Blood Count 4.74 M/mcL (4.19-5.50); Red Cell Distribution Width 14.7 % (11.5-14.5)
[2018-06-20 06:47] LABS: INR 1.6; Prothrombin Time 17.9 Seconds (9.4-12.1)
[2018-06-20] MEDS: Psyllium 1 PACKET POWD.PACK PO SCH ×3 (08:31→21:11)
[2018-06-20] MEDS: Nicotine 21 MG PATCH.TD24 TD SCH (08:32)
[2018-06-20] MEDS: Furosemide 40 MG TABLET PO SCH (08:32)
[2018-06-20] MEDS: Gabapentin 300 MG CAPSULE PO SCH ×3 (08:32→21:11)
[2018-06-20] MEDS: Metoprolol XL (24 HR) Succ 50 MG TAB.ER.24H PO SCH (08:33)
[2018-06-20] MEDS: *HR* LORazepam 0.5 MG TABLET PO PRN ×3 (08:42→22:48)
[2018-06-20 09:24] LABS: BUN/Creatinine Ratio 7 (6-26); Blood Urea Nitrogen 6 mg/dL (8-23); Calcium 8.8 mg/dL (8.6-10.3); Carbon Dioxide 25 mEq/L (23-29); Chloride 106 mEq/L (98-107); Glucose 121 mg/dL (70-105); Osmolality,Calculated 287 (280-300); Potassium 3.6 mEq/L (3.5-5.1); Sodium 139 mEq/L (136-145); eGFR For Non-African Americans > 60 (> 60)
--- NOTE | 2018-06-20 13:20 | Internal Med Progress Note ---
Hospitalist Progress Note - Encounter Date of Encounter: 06/20/18 Time of Encounter: 08:45 - Subjective Interval History: denies diarrhea, denies fever, chillls, N/v. is tolerating PO diet no events over night denies CP, SOB, palpitations, melena, hematochezia, hematemesis. - Exam Vitals: Temp Pulse Resp BP Pulse Ox 97.7 F 74 18 108/75 95 06/20/18 10:19 06/20/18 10:19 06/20/18 10:19 06/20/18 10:06/20/18 10:19 Exam: General: Patient is alert, oriented, no acute distress, morbidly obese Head: atraumatic, normocephalic, Eye: normal appearance, PERRL, no scleral icterus, no conjunctival injection ENT: mucous membranes moist, normal external ear exam Neck: normal inspection, trachea midline, full ROM, no carotid bruits Chest: normal inspection, symmetric chest rise Respiratory: decrease breath sounds due to body habitus, Good respiratory effort. Bilateral breath sounds are clear without wheezing, crackles, or rhonchi. Cardiovascular: decreased heart sounds secondary to body habitus, Regular rate and rhythm. s1 and s2 No clicks, rubs, gallops, or murmors. Abdomen: Bowel sounds present normoactive x-4 quadrants. Abdomen is soft, no Epigastric tenderness. No guarding or rebound. No organomegaly noted, obese, musculoskeletal: Spontaneously moving all extremities. no edema, no calf tenderness Skin: warm, dry, intact. Neuro: Alert and oriented x4. Sensation light touch intact. Cranial nerves 2- 12 is intact. Not aphasic, rapid hand movements intact, [id number] intact, Psych: Patient's affect is normal - Assessment and Plan (1) Acute diverticulitis of intestine Current Visit: Yes Status: Acute Assessment and Plan: Ct A/P on 06/16- . Acute sigmoid diverticulitis with a 2.0 x 1.7 cm intramural versus pericolonic abscess. No extraluminal gas. on ciprofloxacin and flagyl IV since 06/16 symptoms nearly resolved tolerating PO diet last colonoscopy was >10 years ago - cannot recall findings surgery recs appreciated started on psyllium (2) Colonic diverticular abscess Current Visit: Yes Status: Acute Assessment and Plan: CT A/p on 06/16/18-showed 1. Acute sigmoid diverticulitis with a 2.0 x 1.7 cm intramural versus pericolonic abscess. No extraluminal gas. Abx as per above surgery was consulted ad recommendations appreciated Follow up with Dr. Alvarado as outpatient in 2 weeks Will need colonscopy in 6-8 weeks (3) Chronic deep vein thrombosis (DVT) Current Visit: Yes Status: Chronic Assessment and Plan: on therapuetic lovenox coumadin was held by PCP for dental procedure which is now cancelled coumadin restarted will follow INR INR on 06/20 -1.6 (4) Obesity, Class III, BMI 40-49.9 (morbid obesity) Current Visit: Yes Status: Acute Assessment and Plan: was counseled on nutrition nutrition consulted (5) DVT prophylaxis Current Visit: Yes Status: Acute Assessment and Plan: on therapeutic lovenox for chronic DVT has IVC filter placed coumadin restarted follow INR (6) Major depress dis, severe Current Visit: No Status: Acute Assessment and Plan: will continue home medications currently denies SI and HI (7) Tobacco dependence Current Visit: No Status: Acute Assessment and Plan: was counseled on tobacco cessation - Time Spent with Patient Total time spent is greater than 50% in coordination of care (as documented) at patient's floor/unit and/or counseling patient: Internal Medicine: Result - Labs CBC & Chem 7: 06/20/18 06:14 06/20/18 06:14 Labs: Short CBC 06/20/18 Range/Units 06:14 WBC 8.9 (4.3-11.1) K/mcL Hgb 13.7 (12.9-16.9) g/dL Hct 42.0 (37.5-50.1) % Plt Count 267 (140-400) K/mcL BMP 06/20/18 06:14 Sodium 139 Potassium 3.6 Chloride 106 Carbon Dioxide 25 BUN 6 L Creatinine 0.82 Glucose 121 H Calcium 8.8 - ABG Interpretation ABG results: PT/INR, D-dimer PT 17.9 Seconds (9.4-12.1) H 06/20/18 06:14 Consult Discharge Plan - Plan Referrals: Stu Alvarado MD [Partnered Physician] - Michael Lopez CNP [Primary Care Provider] - Prescriptions: Ciprofloxacin [Cipro] 500 mg PO BID #14 tablet metroNIDAZOLE [Metronidazole] 500 mg PO TID #21 tablet
[2018-06-20] MEDS ORDERED: *HR* Warfarin 3 MG TABLET PO ONE (18:00)
[2018-06-20] MEDS: traZODone 50 MG TABLET PO SCH (21:11)
[2018-06-21] MEDS: MetroNIDAZOLE 500 MG/100 ML 500 MG/100 ML BAG IVPB SCH ×3 (01:00→15:53)
[2018-06-21 04:21] LABS: Hematocrit 43.2 % (37.5-50.1); Hemoglobin 14.5 g/dL (12.9-16.9); Mean Corpuscular HGB Conc 33.6 g/dL (31.6-35.5); Mean Corpuscular Hemoglobin 29.8 pg (28.0-33.3); Mean Corpuscular Volume 88.9 fL (83.0-100.0); Mean Platelet Volume 10.3 fL (9.4-12.4); Platelet Count 256 K/mcL (140-400); Red Blood Count 4.86 M/mcL (4.19-5.50); Red Cell Distribution Width 14.8 % (11.5-14.5)
[2018-06-21 04:28] LABS: INR 1.9; Prothrombin Time 21.8 Seconds (9.4-12.1)
[2018-06-21 04:39] LABS: BUN/Creatinine Ratio 14 (6-26); Blood Urea Nitrogen 10 mg/dL (8-23); Carbon Dioxide 26 mEq/L (23-29); Chloride 106 mEq/L (98-107); Glucose 99 mg/dL (70-105); Osmolality,Calculated 283 (280-300); Potassium 3.8 mEq/L (3.5-5.1); Sodium 137 mEq/L (136-145); eGFR For Non-African Americans > 60 (> 60)
[2018-06-21] MEDS: *HR* Enoxaparin 150 MG/ML SYRINGE SQ SCH ×2 (05:27→17:49)
[2018-06-21] MEDS: Psyllium 1 PACKET POWD.PACK PO SCH ×3 (09:59→21:09)
[2018-06-21] MEDS: Furosemide 40 MG TABLET PO SCH (09:59)
[2018-06-21] MEDS: Nicotine 21 MG PATCH.TD24 TD SCH (09:59)
[2018-06-21] MEDS: Metoprolol XL (24 HR) Succ 50 MG TAB.ER.24H PO SCH (09:59)
[2018-06-21] MEDS: Gabapentin 300 MG CAPSULE PO SCH ×3 (10:01→21:09)
[2018-06-21] MEDS: *HR* LORazepam 0.5 MG TABLET PO PRN (10:07)
--- NOTE | 2018-06-21 11:12 | Internal Med Progress Note ---
Hospitalist Progress Note - Encounter Date of Encounter: 06/21/18 Time of Encounter: 08:45 - Subjective Interval History: denies diarrhea, denies fever, chillls, N/v. is tolerating PO diet no events over night denies CP, SOB, palpitations, melena, hematochezia, hematemesis. - Exam Vitals: Temp Pulse Resp BP Pulse Ox 98.2 F 86 18 115/73 96 06/21/18 10:15 06/21/18 10:15 06/21/18 10:15 06/21/18 10:15 06/21/18 10:15 Exam: General: Patient is alert, oriented, no acute distress, morbidly obese Head: atraumatic, normocephalic, Eye: normal appearance, PERRL, no scleral icterus, no conjunctival injection ENT: mucous membranes moist, normal external ear exam Neck: normal inspection, trachea midline, full ROM, no carotid bruits Chest: normal inspection, symmetric chest rise Respiratory: decrease breath sounds due to body habitus, Good respiratory effort. Bilateral breath sounds are clear without wheezing, crackles, or rhonchi. Cardiovascular: decreased heart sounds secondary to body habitus, Regular rate and rhythm. s1 and s2 No clicks, rubs, gallops, or murmors. Abdomen: Bowel sounds present normoactive x-4 quadrants. Abdomen is soft, no Epigastric tenderness. No guarding or rebound. No organomegaly noted, obese, musculoskeletal: Spontaneously moving all extremities. no edema, no calf tenderness Skin: warm, dry, intact. Neuro: Alert and oriented x4. Sensation light touch intact. Cranial nerves 2- 12 is intact. Not aphasic, rapid hand movements intact, [id number] intact, Psych: Patient's affect is normal - Assessment and Plan (1) Acute diverticulitis of intestine Current Visit: Yes Status: Acute Assessment and Plan: Ct A/P on 06/16- . Acute sigmoid diverticulitis with a 2.0 x 1.7 cm intramural versus pericolonic abscess. No extraluminal gas. on ciprofloxacin and flagyl IV since 06/16 symptoms nearly resolved tolerating PO diet last colonoscopy was >10 years ago - cannot recall findings surgery recs appreciated started on psyllium (2) Colonic diverticular abscess Current Visit: Yes Status: Acute Assessment and Plan: CT A/p on 06/16/18-showed 1. Acute sigmoid diverticulitis with a 2.0 x 1.7 cm intramural versus pericolonic abscess. No extraluminal gas. Abx as per above surgery was consulted ad recommendations appreciated Follow up with Dr. Alvarado as outpatient in 2 weeks Will need colonscopy in 6-8 weeks (3) Chronic deep vein thrombosis (DVT) Current Visit: Yes Status: Chronic Assessment and Plan: on therapuetic lovenox coumadin was held by PCP for dental procedure which is now cancelled coumadin restarted will follow INR INR on 1.9 (4) Obesity, Class III, BMI 40-49.9 (morbid obesity) Current Visit: Yes Status: Acute Assessment and Plan: was counseled on nutrition nutrition consulted (5) DVT prophylaxis Current Visit: Yes Status: Acute Assessment and Plan: on therapeutic lovenox for chronic DVT has IVC filter placed coumadin restarted follow INR (6) Major depress dis, severe Current Visit: No Status: Acute Assessment and Plan: will continue home medications currently denies SI and HI (7) Tobacco dependence Current Visit: No Status: Acute Assessment and Plan: was counseled on tobacco cessation - Time Spent with Patient Total time spent is greater than 50% in coordination of care (as documented) at patient's floor/unit and/or counseling patient: Internal Medicine: Result - Labs CBC & Chem 7: 06/21/18 03:35 06/21/18 03:35 Labs: Short CBC 06/21/18 Range/Units 03:35 WBC 9.2 (4.3-11.1) K/mcL Hgb 14.5 (12.9-16.9) g/dL Hct 43.2 (37.5-50.1) % Plt Count 256 (140-400) K/mcL BMP 06/21/18 03:35 Sodium 137 Potassium 3.8 Chloride 106 Carbon Dioxide 26 BUN 10 Creatinine 0.74 Glucose 99 Calcium 9.0 - ABG Interpretation ABG results: PT/INR, D-dimer PT 21.8 Seconds (9.4-12.1) H 06/21/18 03:35 Consult Discharge Plan - Plan Additional Instructions: Will be most likely discharged on 06/22 Needs to have follow-up with his INR To follow-up with Dr. Alvarado for colonoscopy as outpatient Referrals: Stu Alvarado MD [Partnered Physician] - Michael Lopez CNP [Primary Care Provider] - Prescriptions: Ciprofloxacin [Cipro] 500 mg PO BID #14 tablet metroNIDAZOLE [Metronidazole] 500 mg PO TID #21 tablet
[2018-06-21] MEDS ORDERED: *HR* Warfarin 3 MG TABLET PO ONE (18:00)
[2018-06-21] MEDS: traZODone 50 MG TABLET PO SCH (21:10)
[2018-06-22] MEDS: MetroNIDAZOLE 500 MG/100 ML 500 MG/100 ML BAG IVPB SCH ×2 (00:40→07:55)
[2018-06-22] MEDS: *HR* Enoxaparin 150 MG/ML SYRINGE SQ SCH ×2 (05:40→16:11)
[2018-06-22 06:19] LABS: INR 2.2
[2018-06-22] MEDS: Gabapentin 300 MG CAPSULE PO SCH ×2 (07:53→16:10)
[2018-06-22] MEDS: Nicotine 21 MG PATCH.TD24 TD SCH (07:55)
[2018-06-22] MEDS: Furosemide 40 MG TABLET PO SCH (07:55)
[2018-06-22] MEDS: Metoprolol XL (24 HR) Succ 50 MG TAB.ER.24H PO SCH (08:11)
[2018-06-22] MEDS: *HR* LORazepam 0.5 MG TABLET PO PRN ×2 (08:17→16:10)
[2018-06-22] MEDS: Psyllium 1 PACKET POWD.PACK PO SCH ×2 (08:48→16:34)
--- NOTE | 2018-06-22 09:39 | Discharge Summary ---
- NOTES TO OUTPATIENT PROVIDER Notes to Outpatient Provider: INR to be followed was discharged with INR of 2.2. Follow up with Dr. Alvarado as outpatient in 2 weeks. Will need colonscopy in 6-8 weeks Orders not resulted at time of discharge: Pending orders 06/23/18 04:00 PT/INR [Prothrombin Time INR] [COAG] AM 0400 Date of Encounter: 06/22/18 Time of Encounter: 09:33 - Discharge Diagnosis (1) Acute diverticulitis of intestine Priority: Primary Status: Acute (2) Colonic diverticular abscess Priority: Secondary Status: Acute (3) Chronic deep vein thrombosis (DVT) Priority: Secondary Status: Chronic Qualifiers: Laterality: unspecified laterality Qualified Code(s): I82.509 - Chronic embolism and thrombosis of unspecified deep veins of unspecified lower extremity (4) Obesity, Class III, BMI 40-49.9 (morbid obesity) Priority: Secondary Status: Acute (5) DVT prophylaxis Priority: Secondary Status: Acute (6) Major depress dis, severe Priority: Secondary Status: Acute (7) Tobacco dependence Priority: Secondary Status: Acute Hospital course: Mr. Thakkar is a 58 year old male with history of depression, chronic DVT status post IVC filter on anticoagulation presented to [facility] from [facility] for left-sided abdominal pain. As per patient he was having one-week history of abdominal pain located in the left lower quadrant and associated with diarrhea and was described ciprofloxacin and Flagyl by his primary care physician. He did not have any improvement while on oral antibiotics so primary care physician ordered a CT scan of the abdomen and pelvis which showed acute diverticulitis with 2 x 1.7 cm abscess. In addition to above he was also transitioned to subcutaneous Lovenox for DVT prophylaxis as he had dental procedure planned on 06/17. He reported that the dental procedure was canceled due to his abdominal pain. He was admitted for acute diverticulitis with abscess and was started on IV antibiotics. Surgery was consulted and it was recommended for him to follow-up as outpatient for colonoscopy. Oral antibiotics were prescribed by the surgery team and he was cleared for discharge. Vitals remained stable, he remained afebrile diet was increased gradually and he tolerated. Diarrhea resolved. His Coumadin was resumed and bridged with subcutaneous Lovenox. INR was therapeutic on 9/4. He received Lovenox therapeutic dose 2 on 06/22. Was given an appointment at the Coumadin clinic to check his INR on the jewel gauger of . He was told to take one dose of therapeutic Lovenox that was prescribed by his primary care physician at home on the morning of 06/23. Primary care appointment was made by on 06/23 to follow-up INR level and adjust Coumadin. I discussed above plan extensively with patient and he understands. We discussed risk of bleeding and the importance of having a therapeutic INR and he understands. He understands that he needs to follow-up with Dr. Alvarado in 2 weeks and have colonoscopy performed in 4-8 weeks as he does have an abscess. He was treated with IV antibiotics while in the hospital for 7 days and the remainder of the antibiotic was described by surgery team. He understand the importance of following up with the surgery team as diverticular abscess can form fistulas. He was counseled on nutrition and smoking cessation along with alcohol cessation. Discharge discussed with: patient, nurse, retail sales consultant - Time Spent with Patient Total time spent providing and/or coordinating discharge services: Less than 30 minutes - Discharge Medications Prescriptions: Ciprofloxacin [Cipro] 500 mg PO BID #14 tablet Lisinopril [Zestril] 10 mg PO DAILY #30 tablet metroNIDAZOLE [Metronidazole] 500 mg PO TID #21 tablet Nicotine Patch [Nicoderm] 21 mg TD DAILY #30 patch.td24 Psyllium [Metamucil Fiber Singles Packet] 1 packet PO TID 30 Days #90 powd.pack Home Medications: Warfarin Sodium 3 mg PO Q48H 06/16/18 [History] Warfarin Sodium 3.5 mg PO Q48H 06/16/18 [History] Dicyclomine [Bentyl] 20 mg PO QID 06/17/18 [History] Duloxetine HCl [Cymbalta] 60 mg PO DAILY 06/17/18 [History] Enoxaparin [Lovenox] 120 mg SQ Q12HR 06/17/18 [History] Furosemide [Lasix] 40 mg PO DAILY 06/17/18 [History] Gabapentin [Neurontin] 300 mg PO TID 06/17/18 [History] LORazepam [Ativan] 1 mg PO TID 06/17/18 [History] Metoprolol Succinate [Toprol Xl] 100 mg PO DAILY 06/17/18 [History] Omeprazole [PriLOSEC] 40 mg PO BID 06/17/18 [History] Potassium Chloride [K-Tab ER] 8 meq PO DAILY 06/17/18 [History] Quetiapine Fumarate [Seroquel] 50 mg PO HS 06/17/18 [History] Rosuvastatin [Crestor] 40 mg PO HS 06/17/18 [History] Tamsulosin [Flomax] 0.4 mg PO DAILY 06/17/18 [History] Tizanidine HCl 4 mg PO TID PRN 06/17/18 [History] Trazodone HCl 50 mg PO HS 06/17/18 [History] Ciprofloxacin [Cipro] 500 mg PO BID #14 tablet 06/19/18 [Rx] metroNIDAZOLE [Metronidazole] 500 mg PO TID #21 tablet 06/19/18 [Rx] Lisinopril [Zestril] 10 mg PO DAILY #30 tablet 06/22/18 [Rx] Nicotine Patch [Nicoderm] 21 mg TD DAILY #30 patch.td24 06/22/18 [Rx] Psyllium [Metamucil Fiber Singles Packet] 1 packet PO TID 30 Days #90 powd.pack 06/22/18 [Rx] Allergies/Adverse Reactions: 3 Allergy/AdvReac Type Severity Reaction Status Date / Time some kind of depression Allergy Itching Uncoded 06/16/18 17:12 medication Date of admission: 06/16/18 21:55 Primary care physician: Michael Lopez CNP Consults: 06/17/18 10:40 Consult to Nutrition [CONS] Routine Comment: Low Fiber diet; diverticulitis Consulting Provider: NUTRITION Reason for Dietary Consult: PO Supplementation 06/18/18 11:35 Consult to Surgery [CONS] Routine Consulting Provider: Stu Alvarado Reason for Consult: diverticulitis with abscess Call Completed: Yes - Constitutional Vitals: Temp Pulse Resp BP Pulse Ox 97.8 F 66 16 111/73 92 06/22/18 04:28 06/22/18 04:28 06/22/18 04:28 06/22/18 04:28 06/22/18 04:28 General appearance: Present: cooperative, A&O X 3, pleasant, no acute distress, obese, answers questions appropriately Exam: General: Patient is alert, oriented, no acute distress, morbidly obese Head: atraumatic, normocephalic, Eye: normal appearance, PERRL, no scleral icterus, no conjunctival injection ENT: mucous membranes moist, normal external ear exam Neck: normal inspection, trachea midline, full ROM, no carotid bruits Chest: normal inspection, symmetric chest rise Respiratory: decrease breath sounds due to body habitus, Good respiratory effort. Bilateral breath sounds are clear without wheezing, crackles, or rhonchi. Cardiovascular: decreased heart sounds secondary to body habitus, Regular rate and rhythm. s1 and s2 No clicks, rubs, gallops, or murmors. Abdomen: Bowel sounds present normoactive x-4 quadrants. Abdomen is soft, no Epigastric tenderness. No guarding or rebound. No organomegaly noted, obese, musculoskeletal: Spontaneously moving all extremities. no edema, no calf tenderness Skin: warm, dry, intact. Neuro: Alert and oriented x4. Sensation light touch intact. Cranial nerves 2- 12 is intact. Not aphasic, rapid hand movements intact, [id number] intact, Psych: Patient's affect is normal - Patient Status Disposition: Home, Self-Care Condition: Fair Functional capacity at discharge: independent ambulation Overall status at discharge: patient is progressing back to baseline - Discharge Instructions Follow Up With: Stu Alvarado MD [Partnered Physician] - 07/06/18 10:10 am Michael Lopez CNP [Primary Care Provider] - 06/23/18 2:20 pm (With INR check.) - Diet and Activity Activity: increase activity as tolerated Diet: low fat, low cholesterol
[2018-06-22 11:38] VITALS: BP 120/82
[2018-06-22] MEDS ORDERED: *HR* Warfarin 3 MG TABLET PO ONE (18:00)
== END 2018-06-22 16:43 | disposition home or self-care (01) | DRG 392 ==
LOC: 3ANU 21:55 → SUATTDRO 21:55
PROVIDERS: ADMIT Internal Medicine; ATTEND Internal Medicine